=== PATIENT | female | born 1955 | race Caucasian/White ===

== ENCOUNTER 2017-11-25 09:07 | Inpatient (IN) | payer OTHER ==
--- OUTSIDE RECORDS SUMMARY | 2017-11-25 09:12 | XMS REPORT ---
:1955 External Reference #:[id number] Author Organization [employer] Address [address] [place] [address] Phone [phone] Care Team Providers Name Role Phone Herbert Marroquin MD Primary Care Physician Unavailable Payers Type Date Identification Numbers Payment Provider Subscriber Medicaid Expires: 2014 Policy Number: [id number] Medicaid Sherri Manuel Group Name: 1 1 [address] PayID: [id number] [place] [address] Commercial Effective: Policy Number: Judge/Totalcare Medicaid Sherri Manuel 2014 [id number] PayID: [id number] [address] [address] [place] [address] Problems Date Description Provider Status Onset: 08/12/2016 H/O: pulmonary embolus Ricarda Palumbo M.D. Active Onset: 08/12/2016 Paroxysmal atrial fibrillation Ricarda Palumbo M.D. Active Onset: 11/21/2014 Atrial flutter Ricarda Palmubo M.D. Active Onset: 06/13/2014 Morbid obesity Tammi Mayen MD Active Onset: 06/13/2014 Dyssomnia Tammi Mayen MD Active Onset: 05/12/2014 Obesity Ricarda Palumbo M.D. Active Onset: 05/12/2014 Essential hypertension Ricarda Palumbo M.D. Active Onset: 05/12/2014 Atrial fibrillation Ricarda Palumbo M.D. Active Family History Date Family Member(s) Problem(s) Comments General Heart Disease Father Coronary Artery Disease (CAD) 59 yo Mother Pulmonary Embolism (Pe) 45 yo. Also had enlarged heart Siblings 1 heart problems, brother Siblings 3 Siblings 2 Social History Type Date Description Comments Marital Status Single Lives With Boyfriend Occupation Not Currently Working Cigarette Use Former Cigarette Smoker Smokeless Tobacco Never Used Smokeless Tobacco ETOH Use Denies alcohol use Smoking Patient is a former smoker Recreational Drug Use Denies Drug Use Daily Caffeine Consumes on average 2 cups of regular coffee per day Exercise Type/Frequency Does not exercise General Hx Text Do you follow a special diet: regular diet Do you have problems snoring, daytime fatigue: no snoring, sometimes daytime fatigue. Allergies, Adverse Reactions, Alerts Date Description Reaction Status Severity Comments 06/24/2013 Biaxin active 06/24/2013 Levaquin active 05/12/2014 Contrast Dye active 05/24/2014 EKG Electrodes active 05/24/2014 Keflex active 06/02/2014 Metoprolol Shortness of breath active Mild Medications Medication Date Status Form Strength Qnty SIG Indications Ordering Provider Zaroxolyn Active Tablets 2.5mg 1 tab by Other 018 mouth Ordering daily 30 Provider min before lasix Verapamil HCL Active Caps ER 120mg 30caps Take 1 by I48.0 Usha STed ER 018 24HR mouth with Foster, 180mg tab N.P. Walker With Active M17.11 Dirk Wheels 017 Shruti Gabriel Verapamil HCL Active Caps ER 180mg 90caps 1 by mouth Ricarda ER 015 24HR daily Shruti Palumbo Singulair Active Tablets 10mg 1 by mouth Unknown 000 every day Proair HFA Active Aerosol 108(90Base 2 puffs by Unknown 000 ) mcg/Act mouth every 4 hours as needed Coumadin Active Tablets 5mg Take 1 Unknown 000 Tablet By Mouth Every Day Or as Directed Furosemide Active Tablets 40mg 1 by mouth Unknown 000 every day Propafenone Active Tablets 150mg 1 by mouth Unknown HCL 000 twice a day Aspirin Ec Hx Tablets 81mg 30tabs 1 by mouth I48.0 Ricarda 015 - DR every day Marquette, Shruti 017 Verapamil HCL Hx Caps ER 120mg 30caps take 1 tab Ricarda ER 015 - 24HR by mouth [place], daily - M.D. 015 start 06/02/14 Metoprolol Hx Tablets 25mg 30tabs 1 by mouth 427.32 Ricarda Succinate ER 015 - ER 24HR twice a [place], day M.D. 015 Verapamil HCL Hx Caps ER 120mg 30caps Take 1 tab 427.32 Ricarda ER 015 - 24HR po daily - Linwood, start M.D. 015 05/22/14 Multaq Hx Tablets 400mg 60tabs 1 by mouth 427.31 Ricarda 015 - twice a [place], day M.D. 015 Klor-Con 10 Hx Tablets 10Meq 90tabs 1 tablets 427.31 Ricarda 015 - ER by mouth [place], daily . M.D. 015 Amlodipine Hx 5mg once daily Unknown Besylate 000 - (Hold as of 015 05/22/14) Xarelto 0 Hx Tablets 20mg 90tabs 1 by mouth Unknown 000 - every day 015 Metoprolol /0 Hx Tablets 25mg 90tabs 1 by mouth Unknown Succinate ER 000 - ER 24HR every day 015 Prednisone 00/0 Hx Tablets 20mg 1 tablet Unknown 000 - po daily x 5days, 015 then 10mg 1 tablet po daily x 3days, then stop. Proair HFA Hx Aerosol 108(90Base 1units 2 puffs by Unknown 000 - ) mcg/Act mouth every 4 015 hours as needed Atenolol /0 Hx Tablets 25mg 30tabs 1 by mouth Unknown 000 - every day 015 Diltiazem HCL 0 Hx Caps ER 120mg 90caps 1 by mouth Unknown ER 000 - 24HR every day 015 Aspirin 00/0 Hx Tablets 81mg 1 by mouth Unknown 000 - every day 015 Tylenol 00/0 Hx Tablets 650mg Unknown Arthritis 000 - ER Relief 018 Vital Signs Date Vital Result Comment 11/12/2017 Height 66 inches 5'6" Heart Rate 118 /min BP Systolic Sitting 118 mmHg LA lg cuff BP Diastolic Sitting 92 mmHg LA lg cuff Ejection Fraction 60% Echo 03/18/15 10/08/2017 Height 66 inches 5'6" Heart Rate 100 /min BP Systolic Sitting 146 mmHg BP Diastolic Sitting 92 mmHg Respiratory Rate 20 /min Ejection Fraction 55-60% echo 03/18/2015 03/03/2017 Height 66 inches 5'6" Weight 332.00 lb with shoes Heart Rate 84 /min irreg BP Systolic Sitting 118 mmHg Rue lg cuff BP Diastolic Sitting 80 mmHg Rue lg cuff BP Systolic Standing 110 mmHg Rue lg cuff BP Diastolic Standing 74 mmHg Rue lg cuff Respiratory Rate 17 /min BMI (Body Mass Index) 53.6 kg/m2 Ejection Fraction 55-60% date 03/18/2015 ECHO 02/16/2017 Height 66 inches 5'6" Weight 310.00 lb BP Systolic 122 mmHg BP Diastolic 84 mmHg Respiratory Rate 20 /min Body Temperature 97.9 F Pain Level 7 BMI (Body Mass Index) 50.0 kg/m2 08/12/2016 Height 66 inches 5'6" Weight 310.00 lb without shoes Heart Rate 90 /min BP Systolic 140 mmHg Rue lg cuff BP Diastolic 100 mmHg Rue lg cuff BP Systolic Sitting 136 mmHg Lue lg cuff BP Diastolic Sitting 102 mmHg Lue lg cuff BP Systolic Standing 130 mmHg Lue lg cuff BP Diastolic Standing 88 mmHg Lue lg cuff Respiratory Rate 18 /min BMI (Body Mass Index) 50.0 kg/m2 Ejection Fraction 50% date 04/02/14 ECHO 02/12/2015 Height 66 inches 5'6" Weight 264.00 lb without shoes Heart Rate 85 /min BP Systolic Sitting 144 mmHg L arm, large cuff BP Diastolic Sitting 90 mmHg L arm, large cuff BP Systolic Standing 138 mmHg BP Diastolic Standing 90 mmHg Respiratory Rate 20 /min BMI (Body Mass Index) 42.6 kg/m2 Ejection Fraction 40-50% 03/201411/21/2014 Height 66 inches 5'6" Weight 260.00 lb with shoes Heart Rate 80 /min BP Systolic Sitting 146 mmHg LA, Lg cuff BP Diastolic Sitting 96 mmHg LA, Lg cuff BP Systolic Standing 138 mmHg LA BP Diastolic Standing 96 mmHg LA Respiratory Rate 16 /min BMI (Body Mass Index) 42.0 kg/m2 Ejection Fraction 45-50% 04/02/2014 06/13/2014 Height 66 inches 5'6" Weight 272.38 lb full clothed Heart Rate 78 /min BP Systolic Sitting 144 mmHg BP Diastolic Sitting 92 mmHg Respiratory Rate 20 /min Body Temperature 97.8 F O2 % BldC Oximetry 98 % BMI (Body Mass Index) 44.0 kg/m2 Neck Circumference in inches 17.5 05/24/2014 Height 64 inches 5'4" Weight 273.00 lb with shoes Heart Rate 80 /min BP Systolic Sitting 120 mmHg LA, Lg cuff BP Diastolic Sitting 88 mmHg LA, Lg cuff BP Systolic Standing 118 mmHg LA BP Diastolic Standing 92 mmHg LA Respiratory Rate 16 /min BMI (Body Mass Index) 46.9 kg/m2 05/22/2014 Height 64 inches 5'4" Weight 272.00 lb with shoes Heart Rate 154 /min BP Systolic Sitting 120 mmHg Ra lg cuff BP Diastolic Sitting 94 mmHg Ra lg cuff Respiratory Rate 18 /min BMI (Body Mass Index) 46.7 kg/m2 05/12/2014 Height 64 inches 5'4" Weight 275.00 lb without shoes Heart Rate 80 /min BP Systolic 124 mmHg Ra lg cuff BP Diastolic 80 mmHg Ra lg cuff BP Systolic Sitting 126 mmHg La lg cuff BP Diastolic Sitting 90 mmHg La lg cuff BP Systolic Standing 130 mmHg La lg cuff BP Diastolic Standing 84 mmHg La lg cuff Respiratory Rate 16 /min BMI (Body Mass Index) 47.2 kg/m2 12/16/2013 Height 66 inches 5'6" Weight 296.00 lb Heart Rate 81 /min BP Systolic 145 mmHg BP Diastolic 90 mmHg BMI (Body Mass Index) 47.8 kg/m2 11/18/2013 Height 66 inches 5'6" Weight 293.00 lb Heart Rate 86 /min BP Systolic 160 mmHg BP Diastolic 90 mmHg BMI (Body Mass Index) 47.3 kg/m2 09/16/2013 Height 66 inches 5'6" Weight 300.00 lb Heart Rate 87 /min BP Systolic 133 mmHg BP Diastolic 85 mmHg BMI (Body Mass Index) 48.4 kg/m2 08/02/2013 Height 66 inches 5'6" Weight 300.00 lb Heart Rate 84 /min BMI (Body Mass Index) 48.4 kg/m2 07/13/2013 Height 66 inches 5'6" Weight 300.00 lb Heart Rate 77 /min BP Systolic 178 mmHg BP Diastolic 109 mmHg BMI (Body Mass Index) 48.4 kg/m2 06/24/2013 Height 66 inches 5'6" Weight 300.00 lb Heart Rate 83 /min BP Systolic 158 mmHg BP Diastolic 95 mmHg BMI (Body Mass Index) 48.4 kg/m2 Results Test Date Test Result H/L Range Note Order 05/24/2014 EKG <pending> Laboratory test finding 03/27/2014 Troponin I 0.01 ng/mL <0.03 1 CKMB 03/27/2014 CKMB ng/mL 2.5 ng/mL 0.6-6.3 Comp Metabolic Panel 03/27/2014 Sodium 138 mmol/L 133-145 Potassium 3.5 mmol/L 3.5-5.0 2 Chloride 103 mmol/L 101-111 Co2 Carbon Dioxide 29 mmol/L 22-32 Anion Gap 6 mmol/L 2-11 Glucose 137 mg/dL High 70-100 Blood Urea Nitrogen 18 mg/dL 6-24 Creatinine 0.92 mg/dL 0.51-0.95 BUN/Creatinine Ratio 19.6 8-20 Calcium 9.4 mg/dL 8.6-10.3 Total Protein 6.8 g/dL 6.4-8.9 Albumin 4.0 g/dL 3.2-5.2 Globulin 2.8 g/dL 2-4 Albumin/Globulin Ratio 1.4 1-3 Total Bilirubin 0.60 mg/dL 0.2-1.0 Alkaline Phosphatase 59 U/L 34-104 Alt 10 U/L 7-52 Ast 9 U/L Low 13-39 Egfr Non- 62.9 >60 Egfr 80.9 >60 3 Laboratory test 03/27/2014 D Dimer Quantitative 254 ng/mL High Less Than 230 4 finding B Type Natriuretic Peptide 15 pg/mL 5 CBC Auto Diff 03/27/2014 White Blood Count 11.7 10^3/uL High 4.8-10.8 Red Blood Count 4.50 10^6/uL 4.0-5.4 Hemoglobin 13.0 g/dL 12.0-16.0 Hematocrit 40 % 35-47 Mean Corpuscular Volume 90 fL 80-97 Mean Corpuscular Hemoglobin 29 pg 27-31 Mean Corpuscular HGB Conc 32 g/dL 31-36 Red Cell Distribution Width 14 % 10.5-15 Platelet Count 236 10^3/uL 150-450 Mean Platelet Volume 9 um3 7.4-10.4 Abs Neutrophils 7.8 10^3/uL High 1.5-7.7 Abs Lymphocytes 2.4 10^3/uL 1.0-4.8 Abs Monocytes 0.7 10^3/uL 0-0.8 Abs Eosinophils 0.6 10^3/uL 0-0.6 Abs Basophils 0.1 10^3/uL 0-0.2 Abs Nucleated RBC 0.01 10^3/uL Granulocyte % 66.7 % 38-83 Lymphocyte % 21.0 % Low 25-47 Monocyte % 6.0 % 1-9 Eosinophil % 5.1 % 0-6 Basophil % 1.2 % 0-2 Nucleated Red Blood Cells % 0.1 1 Reference Range and Interpretation: TnI (ng/mL) Interpretation Less Than 0.03 ng/mL Not supportive of diagnosis of [place] 0.03 - 0.50 ng/mL Indeterminate: suggest serial studies if clinically indicated. Greater than 0.5 ng/mL Consistent with diagnosis of [place] 2 Potassium reference range changed effective 03/12/14 3 Because ethnic data is not always readily available, this report includes an eGFR for both -Americans and non- Americans. The National Kidney Disease Education Program (NKDEP) does not endorse the use of the MDRD equation for patients that are not between the ages of 18 and 70, are , have extremes of body size, muscle mass, or nutritional status, or are non- or non-. According to the National Kidney Foundation, irrespective of diagnosis, the stage of the disease is based on the level of kidney function: Stage Description GFR(mL/min/1.73 m(2)) 1 Kidney damage with normal or decreased GFR 90 2 Kidney damage with mild decrease in GFR 60-89 3 Moderate decrease in GFR 30-59 4 Severe decrease in GFR 15-29 5 Kidney failure <15 (or dialysis) 4 Please note: The following may produce a false positive D Dimer test: - Rheumatoid factor greater than 60 IU/ml - Plasma hemoglobin greater than 0.05 gm/dl - Bilirubin greater than 50 mg/dl - Lipids greater than 1000 mg/dl - FDP greater than 20 ug/ml 5 >100 to <200 pg/mL: likely compensated congestive heart failure (CHF) 200 to 400 pg/mL: likely moderate CHF >400 pg/mL: likely moderate to severe CHF [place] [facility] Procedures Date CPT Code Description Status 11/12/2017 77957 EKG Tracing & Interpretation Completed 11/05/2017 41125 Cardioversion Completed 10/27/2017 92226 Holter Monitor Review (24 hr) review & jellyp only Completed 10/21/2017 58705 ECG Monitor/Recording W/Visual Superimposition Scanning Completed 10/08/2017 91052 EKG Tracing & Interpretation Completed 03/03/2017 70492 EKG Tracing & Interpretation Completed 08/12/2016 74275 EKG Tracing & Interpretation Completed 02/12/2015 44033 EKG Tracing & Interpretation Completed 05/24/2014 00308 EKG Tracing & Interpretation Completed 05/22/2014 90066 EKG Tracing & Interpretation Completed 05/12/2014 70936 EKG Tracing & Interpretation Completed 04/02/2014 95050 ECHO Transthorasic Realtime 2D W Doppler & Color Flow Completed Hosp 04/02/2014 05234 EKG, Interpretation Only Completed 07/13/2013 19177 Xray Knee 3 Views Completed 07/13/2013 83718 Xray Knee 3 Views Completed 06/24/2013 10031 Rad Exam; OS Alcis Completed 04/18/2011 53657 Rad Exam; Knee, Ap&L Completed 04/18/2011 14196 Rad Exam; Knee, Ap&L Completed 08/20/2009 21818 Xray Knee 3 Views Completed 08/20/2009 33136 Rad Exam; Knee, Ap&L Completed Encounters Type Date Location Provider CPT E/M Dx Office Visit 10/08/2017 [facility] Usha Freeman N.P. 88330 I48.0 11:00a [employer] I10 E66.01 R60.9 I48.92 Office Visit 03/03/2017 11:15a [facility] Ricarda Palumbo M.D. 43366 I48.0 [employer] I10 E66.01 M17.0 Office Visit 02/16/2017 1:30p [facility] M.D. 39686 M17.11 C.M.ATed M17.12 M17.0 Office Visit 08/12/2016 3:00p [facility] Ricarda Palumbo M.D. 00106 I48.0 [employer] I10 Z68.43 Z86.711 Office Visit 02/12/2015 10:30a [facility] CARYL Diego [address]240 I48.0 I10 E66.01 J45.30 Office Visit 11/21/2014 3:00p [facility] Ricarda Palumbo M.D. 97681 427.32 [facility] 427.31 401.9 786.07 493.10 Office Visit 06/13/2014 8:45a [facility] [address] 780.59 Services Of [facility] 278.01 Office Visit 05/24/2014 9:30a [facility] CARYL Diego 28832 427.32 427.31 401.9 278.00 780.4 Office Visit 05/22/2014 9:30a [facility] CARYL Diego 52754 427.31 427.32 780.4 Office Visit 05/12/2014 2:00p [facility] Ricarda Palumbo M.D. 83222 427.31 [facility] 401.9 278.00 Office Visit 04/02/2014 8:18p [facility] Cristina Juaquin, 05957 427.32 [facility] Shruti 493.90 401.9 Office Visit 04/01/2014 8:17p [facility] [place], [address] 427.32 [facility] Shruti 493.90 401.9 Office Visit 02/11/2014 9:33p [facility] Juan J Poole 95833 553.3 Hospitalists Shruti Pereyra 493.92 401.9 278.01 Office Visit 12/16/2013 10:45a [facility] 53775 726.71 Edita Bahena Office Visit 11/18/2013 10:15a [facility] 69573 726.71 CUrsula Bahena Office Visit 09/16/2013 10:30a [facility] 20000 726.71 Edita Bahena Office Visit 08/02/2013 3:00p [facility] 56954 726.71 CUrsula Bahena Office Visit 07/13/2013 9:30a [facility] M.D. 19756 716.96 C.M.A. Office Visit 06/24/2013 1:15p [facility] Toni 08287 726.71 C.M.A. Rika. Office Visit 04/18/2011 9:30a [facility] M.D. 36729 716.96 C.M.A. Office Visit 08/20/2009 9:30a [facility] M.D. 04334 716.96 C.M.A. Plan of Care Future Appointment(s):02/11/2018 1:30 pm - Ricarda Palumbo M.D. at [facility]12/08/2017 9:00 am - Usha Freeman N.PTed at [facility]11/12/2017 - Usha Freeman NTedPTedI48.0 Paroxysmal atrial fibrillationFollow up:3wk f/u SF w/ EKG 02/2018Recommendations:Continue propafenone at current dose Plan: 1) we may increaased propafenone OR 2) try a different medicine that would require hospitalization.I10 Essential (primary) fxqsanhwnybqW53.01 Morbid (severe) obesity due to excess kkvbnmytW63.9 Edema, unspecified
--- OUTSIDE RECORDS SUMMARY | 2017-11-25 09:12 | XMS REPORT ---
:1955 External Reference #:[id number] Author Organization [employer] Address [address] [place] [place] [address] Phone [phone] Care Team Providers Name Role Phone Herbert Marroquin MD Primary Care Physician Unavailable Payers Type Date Identification Numbers Payment Provider Subscriber Medicaid Expires: 2014 Policy Number: [id number] Medicaid Sherri Manuel Group Name: 1 1 [address] PayID: [id number] [place] [address] Commercial Effective: Policy Number: Judge/Totalcare Medicaid Sherri Manuel 2014 [id number] PayID: [id number] [address] [address] [place] [address] Problems Date Description Provider Status Onset: 08/12/2016 H/O: pulmonary embolus Ricarda Palumbo M.D. Active Onset: 08/12/2016 Paroxysmal atrial fibrillation Ricarda Palumbo M.D. Active Onset: 11/21/2014 Atrial flutter Ricarda Palumbo M.D. Active Onset: 06/13/2014 Morbid obesity Tammi [...] Form Strength Qnty SIG Indications Ordering Provider Verapamil HCL Active Caps ER 120mg 30caps Take 1 by I48.0 Usha S. ER 018 24HR mouth with Foster, 180mg [...] 1 by mouth Unknown 000 every day Aspirin Ec Hx Tablets DR 81mg 30tabs 1 by mouth I48.0 Ricarda 015 - every day Linwood, M.Obdulio 017 Verapamil HCL Hx Caps ER 120mg 30caps take 1 tab Ricarda ER 015 - 24HR by mouth Linwood, daily - MTedDTed 015 start 06/02/14 Metoprolol Hx Tablets ER 25mg 30tabs 1 by mouth 427.32 Ricarda Succinate ER 015 - 24HR twice a [place], day M.D. 015 Verapamil HCL Hx Caps ER 120mg 30caps Take 1 tab 427.32 Ricarda ER 015 - 24HR po daily - Linwood, start M.D. 015 05/22/14 Multaq Hx Tablets 400mg 60tabs 1 by mouth 427.31 Ricarda 015 - twice a [place], day M.D. 015 Klor-Con 10 Hx Tablets ER 10Meq 90tabs 1 tablets 427.31 Ricarda 015 - by mouth [place], daily . M.D. 015 Amlodipine Hx 5mg once daily Unknown Besylate 000 - (Hold as of 015 05/22/14) Xarelto /0 Hx Tablets 20mg 90tabs 1 by mouth Unknown 000 - every day 015 Metoprolol /0 Hx Tablets ER 25mg 90tabs 1 by mouth Unknown Succinate ER 000 - 24HR every day 015 Prednisone /0 Hx Tablets 20mg 1 tablet Unknown 000 - po daily x 5days, 015 then 10mg 1 tablet po daily x 3days, then stop. Proair HFA Hx Aerosol 108(90Base 1units 2 puffs by Unknown 000 - ) mcg/Act mouth every 4 015 hours as needed Atenolol 0 Hx Tablets 25mg 30tabs 1 by mouth Unknown 000 - every day 015 Diltiazem HCL Hx Caps ER 120mg 90caps 1 by mouth Unknown ER 000 - 24HR every day 015 Aspirin /0 Hx Tablets 81mg 1 by mouth Unknown 000 - every day 015 Tylenol 00/0 Hx Tablets ER 650mg Unknown Arthritis 000 - Relief 018 Vital Signs Date Vital Result Comment 10/08/2017 Height 66 inches 5'6" Heart Rate [...] 0.03 ng/mL Not supportive of diagnosis of [place] 0.03 - 0.50 ng/mL Indeterminate: suggest serial studies if clinically indicated. Greater than 0.5 ng/mL Consistent with diagnosis of [place] 2 Potassium reference range changed effective 03/12/14 [...] >400 pg/mL: likely moderate to severe CHF [place] [facility] Procedures Date CPT Code Description Status 10/27/2017 98044 Holter Monitor Review (24 hr)dr pride & interp only Completed 10/21/2017 22433 ECG Monitor/Recording W/Visual Superimposition Scanning Completed 10/08/2017 35534 EKG Tracing & Interpretation Completed 03/03/2017 86983 EKG Tracing & Interpretation Completed 08/12/2016 14924 EKG Tracing & Interpretation Completed 02/12/2015 02348 EKG Tracing & Interpretation Completed 05/24/2014 40256 EKG Tracing & Interpretation Completed 05/22/2014 90822 EKG Tracing & Interpretation Completed 05/12/2014 23030 EKG Tracing & Interpretation Completed 04/02/2014 77478 EKG, Interpretation Only Completed 04/02/2014 79434 ECHO Transthorasic Realtime 2D W Doppler & Color Flow Completed Hosp 07/13/2013 73565 Xray Knee 3 Views Completed 07/13/2013 10549 Xray Knee 3 Views Completed 06/24/2013 49523 Rad Exam; OS Alcis Completed 04/18/2011 38546 Rad Exam; Knee, Ap&L Completed 04/18/2011 57724 Rad Exam; Knee, Ap&L Completed 08/20/2009 26152 Xray Knee 3 Views Completed 08/20/2009 60268 Rad Exam; Knee, Ap&L Completed Encounters Type Date Location Provider CPT E/M Dx Office Visit 10/08/2017 [facility] Usha Freeman, N.PTed 28102 I48.0 11:00a [facility] I10 E66.01 R60.9 I48.92 Office Visit 03/03/2017 11:15a [facility] Ricarda Palumbo M.D. 35430 I48.0 [facility] I10 E66.01 M17.0 Office Visit 02/16/2017 1:30p [facility] M.D. 63309 M17.11 C.M.Puma M17.12 M17.0 Office Visit 08/12/2016 3:00p [facility] Kevin Palumbo M.D. 89317 I48.0 [facility] I10 Z68.43 Z86.711 Office Visit 02/12/2015 10:30a [facility] CARYL [place] 90308 I48.0 I10 E66.01 J45.30 Office Visit 11/21/2014 3:00p [facility] Ricarda Palumbo M.D. 52355 427.32 [facility] 427.31 401.9 786.07 493.10 Office Visit 06/13/2014 8:45a [facility] [address] 780.59 Services Of Orthodontic Assistant 278.01 Office Visit 05/24/2014 9:30a [facility] CARYL [place] 98298 427.32 427.31 401.9 278.00 780.4 Office Visit 05/22/2014 9:30a [facility] CARYL [place] 91953 427.31 427.32 780.4 Office Visit 05/12/2014 2:00p [facility] Ricarda Palumbo M.D. 20120 427.31 [facility] 401.9 278.00 Office Visit 04/02/2014 8:18p [facility] Cristina Reza, 30743 427.32 [facility] Shruti 493.90 401.9 Office Visit 04/01/2014 8:17p [facility] [place], [address] 427.32 [facility] Shruti 493.90 401.9 Office Visit 02/11/2014 9:33p [facility]oc[facility]pc Juan J Poole 13535 553.3 Hospitalists Shruti Pereyra 493.92 401.9 278.01 Office Visit 12/16/2013 10:45a [facility], 84854 726.71 Edita Bahena Office Visit 11/18/2013 10:15a [facility] Toni, 66792 726.71 Edita Bahena Office Visit 09/16/2013 10:30a [facility] Toni, 92011 726.71 Edita Bahena Office Visit 08/02/2013 3:00p [facility] Mu[facility], 03769 726.71 Edita Bahena Office Visit 07/13/2013 9:30a [facility] M.D. 16140 716.96 C.M.ATed Office Visit 06/24/2013 1:15p [facility] 32337 726.71 CUrsula Bahena Office Visit 04/18/2011 9:30a [facility] M.D. 08976 716.96 C.M.ATed Office Visit 08/20/2009 9:30a [facility] M.D. 50303 716.96 C.M.A. Plan of Care Future Appointment(s):11/19/2017 10:00 am - Usha Freeman N.P. at [facility]10/08/2017 - Usha Freeman N.P.I48.0 Paroxysmal atrial fibrillationNew Medication:Verapamil HCL ER 120 mgFollow up:1 mo f/u testingRecommendations:INCREASE Verapamil to 300mg total Take 120mg tab with your 180mg tabI10 Essential (primary) wbysjtmhrpitT39.01 Morbid (severe) obesity due to excess jeithpqmO38.9 Edema, gkrpvaebcanB21.92 Unspecified atrial flutter
[2017-11-25 10:52] LABS: INR 2.69 (0.77-1.02)
[2017-11-25] MEDS ORDERED: Magnesium Sulfate 1 GM IV* 1 GM/100 ML BAG IV PRN (11:06)
[2017-11-25] MEDS ORDERED: Potassium Chlor TAB* 20 MEQ TAB.ER PO PRN (11:09)
[2017-11-25] MEDS: Saline FLUSH-PERIPHERAL* 10 ML SYRINGE PERIPH SCH (11:09)
[2017-11-25] MEDS ORDERED: Potassium Chlor TAB* 10 MEQ TAB.ER PO ONE (11:14)
[2017-11-25] MEDS ORDERED: Magnesium Sulfate IV* 2 GM in NS 0.9% 100 ML* 100 ML IV ONE (11:16)
[2017-11-25] MEDS ORDERED: Diltiazem IV* 5 MG/ML 5 ML VIAL (for loading dose/IV Push) (25 MG) IV PUSH ONE (12:00)
[2017-11-25] MEDS: metFORMIN* 500 MG TAB PO SCH (17:24)
[2017-11-25] MEDS: SITAGLIPTIN 25 MG PO SCH (17:24)
[2017-11-25] MEDS: Warfarin TAB(*) 2.5 MG PO SCH (17:25)
[2017-11-25] MEDS: Montelukast Sodium TAB* 10 MG PO SCH (17:25)
[2017-11-25] MEDS ORDERED: Verapamil SR CAP* 180 MG PO SCH (18:00)
[2017-11-25] MEDS ORDERED: Verapamil SR TAB* 240 MG PO SCH (18:00)
[2017-11-25 20:40] LABS: EGFR Non-African American 62.8 (>60)
[2017-11-25] MEDS: Albuterol HFA INHALER* 8 gm MDI INH PRN (21:06)
[2017-11-25] MEDS: Dofetilide CAP* 250 MCG PO SCH (21:31)
[2017-11-25] MEDS ORDERED: Magnesium Sulfate IV 2 GM in NS 100 ML (Pharmacy Admixed) IV ONE (21:45)
[2017-11-25] MEDS ORDERED: Potassium Chlor TAB* 20 MEQ TAB.ER PO ONE (21:45)
--- NOTE | 2017-11-25 22:57 | HP ---
CC: Dr. Herbert Marroquin HISTORY AND PHYSICAL: DATE OF ADMISSION: 11/25/17 HISTORY OF PRESENT ILLNESS: Ms. Manuel is a 62-year-old woman with paroxysmal atrial fibrillation as w ell as hypertension. The patient had been in sinus rhythm, then called our office at the end of September because of swelling in her legs and shortness of breath. Evaluation revealed AFib/flutter and initia l cardioversion attempt was unsuccessful. She was tried on propafenone but had broken through this a nd QT intervals were too long to increase. When the patient is in atrial fibrillation, she has historically been difficult to rate control and l eg swelling worsens. The patient's diltiazem was converted to verapamil and diuretics were increased from Lasix alone to Lasix plus metolazone. The patient has been on long-standing chronic Coumadin. Today, the patient was being admitted for elective Tikosyn loading with her propafenone having been h eld. She feels that the pounding of the heart and exertional dyspnea is improved with verapamil over diltiazem, although she is still aware of some heart pounding. PAST MEDICAL HISTORY: 1. Paroxysmal atrial fibrillation. 2. Paroxysmal aflutter. 3. Pulmonary embolism. 4. Hypertension. 5. Asthma. 6. Morbid obesity. 7. Renal stones. 8. Degenerative arthritis. PAST SURGICAL HISTORY: Includes, 1. Cholecystectomy. 2. Hernia. OUTPATIENT MEDICATIONS: Include, 1. Verapamil 300 mg a day. 2. Lasix 40 mg a day. 3. Metolazone. 4. Coumadin. 5. ProAir HFA. 6. Singular 10 mg a day. ALLERGIES: Include BIAXIN, LEVAQUIN, CONTRAST DYE, contact dermatitis to EKG ELECTRODES, KEFLEX, and METOPROLOL. FAMILY HISTORY: Positive for heart disease, her father at age 59 of heart disease. Her mother at age 45 of a pulmonary embolism. She has two brothers with heart disease. SOCIAL HISTORY: The patient is disabled, not working. Smoked in the past. No history of alcohol us e or recreational drug use. She had moved to the [facility]. It sounds like was unable to establish c are and moved back here. REVIEW OF SYSTEMS: Significant for the left lower extremity being greater than the right since she d rove to the [facility] and was sleeping in a chair all the time. Negative currently for orthopnea or P ND. No chest pain, pressure, heaviness. Positive for persistent left lower extremity edema greater t chacon right. No recent fevers, chills, sweats, change in bowel or bladder habits. No hematuria or dys uria. All other 15-point review of systems is negative. PHYSICAL EXAMINATION GENERAL APPEARANCE: Morbidly obese woman, somewhat older, I saw her seated in no acute distress. VITAL SIGNS: The patient is 5 feet 6 inches, weighs 355 pounds with a BMI of 57. Vital signs on arri karla to the floor, temperature 98.5, pulse was documented as 95, respiratory rate 20, oxygen saturatio n 93% on room air, blood pressure 150/80. HEENT: Pupils are equal and round. Mucous membranes moist. NECK: Thick from obesity with no appreciable thyromegaly or lymphadenopathy. LUNGS: Breath sounds distant from obesity but clear. No wheezes, rales, or rhonchi. CORONARY: S1 and S2, irregular irregularly without murmurs or rubs. Pulses are distant. ABDOMEN: Very overweight. EXTREMITIES: Left lower extremities shows 2 to 3+ pitting edema and is larger in diameter than the r ight lower extremity, which shows trace to 1+ edema. NEUROLOGIC: Awake, alert, oriented to person, place, and time. Grossly normal sensory and motor fun ction in the upper and lower extremities. Gait not checked. PSYCHOLOGICAL: Pleasant and cooperative. SKIN: Warm, dry without appreciable cyanosis or rashes. DIAGNOSTIC STUDIES: A 12-lead ECG on arrival shows sinus rhythm, 96 beats a minute, QRS axis of 0, normal AV and IV conduction time. She has diffuse ST changes in the lateral leads of flattening, non specific. She had a measured QT interval of 424 milliseconds, which I think is erroneous. Her IN in terval is short, this is particularly evident in leads 1 and aVL. LABORATORY DATA: INR 2.69. Sodium 139, potassium 2.9, glucose 96, bicarb 32, BUN 24, creatinine 0.85, glucose 156. Hemoglobin A 1c was 8.1. Magnesium 1.7. TSH 6.09. Thyroxine 8.75 and total T3 1.14. IMPRESSION: In summary, Sherri Manuel is a 62-year-old woman with paroxysmal atrial fibrillation with tachycardic ventricular response, secondary exertional dyspnea and edema of the left lower extremiti es, being admitted for Tikosyn loading. The patient on the floor appeared to have been in and out of atrial fibrillation. We are unable to st art her Tikosyn loading because of electrolyte imbalance and this is probably related to her more agg ressive diuresis without potassium repletion. I am repleting potassium and magnesium and once these are normalized, we can try to initiate Tikosyn. The Tikosyn interacts with many medications including verapamil and all thiazide diuretics. We are g oing to stop the verapamil, resume diltiazem, and stop the metolazone. The patient's elevated glucoses and hemoglobin A1c is to my knowledge a new diagnosis of diabetes an d a mildly abnormal thyroid was noted. I am going to ask the hospitalist to assist in treatment of h er diabetes. I had already asked for dietitian to consult due to her morbid obesity and atrial fibrillation. Additional recommendations will be made pending the patient's response of her electrolytes and her QT intervals with replacement. My hope is we will be able to initiate Tikosyn, if so, although her cre atinine clearance is adequate to initiate 500 mcg b.i.d., I am going to start her at 250 mcg b.i.d. [id number]/[facility] #: [id number]
--- NOTE | 2017-11-25 23:22 | CONS ---
CC: Dr. Herbert Marroquin; Dr. Ricarda Palumbo * CONSULTATION REPORT: DATE OF CONSULT: 11/25/17 PRIMARY CARE PROVIDER: Dr. Herbert Marroquin. CONSULTING PROVIDER: Dr. Ricarda Palumbo. MY ATTENDING WHILE IN THE HOSPITAL: Dr. Chan Spangler. REASON FOR CONSULT: Co-management of comorbid medical conditions during Tikosyn loading admission. HISTORY OF PRESENT ILLNESS: Ms. Manuel is a 62-year-old female with past medical history significant for paroxysmal atrial fibrillation, asthma, morbid obesity, bilateral lower extremity edema, who has been having worsening episodes of paroxysmal atrial fibrillation with rates up to the 140s. The patient has been also having issues with leg swelling and shortness of breath, which has been resistant to Lasix and metolazone dosing. The patient had a Holter monitor, which showed atrial flutter and fibrillation persistently. The patient has had a stable weight. The patient knows generally when she is in atrial fibrillation due to a palpitation sensation, the patient has never passed out with this, but has had a couple episodes of presyncope associated with these, most recently 1 week ago. The patient denies chest pain with these episodes. The patient has no recent illnesses. The patient was started on propafenone, which was unsuccessful in controlling her atrial fibrillation as well as metolazone to augment her Lasix, which was unsuccessful in controlling her lower extremity edema, which she states has been worsening over the past 2 weeks. The patient states that she has a sensation of going in and out of AFib approximately 3 times a week. The patient was admitted to the hospital for Tikosyn dosing for better rhythm control of her atrial fibrillation. The patient while in the hospital had an elevated fasting glucose as well as hemoglobin A1c of 8.1. The patient has no known history of diabetes mellitus. The patient had an elevated blood glucose recently on her lab work, but adjusted her diet to include fewer carbohydrates and this resolved; however, the patient's blood glucose this morning was 153. The patient denies polydipsia or polyphagia. The patient has gained a lot of weight, but she recently retired and has been exercising much less. The patient states she has had polyuria, but attributes this to the increase in her diuretic dosing. The patient uses her rescue inhaler for her asthma approximately twice a day. The patient is on no maintenance inhaler, only Singulair. We were asked to consult for help for control of the patient's diabetes. The patient also had an elevated TSH in the hospital, but normal T3 and T4. The patient has been continued on Coumadin and is currently therapeutic on her INR. PAST MEDICAL HISTORY: Moderate persistent asthma, atrial fibrillation, lower extremity edema, osteoarthritis, morbid obesity, new-onset diabetes mellitus. PAST SURGICAL HISTORY: Cholecystectomy, hernia repair. MEDICATIONS: On admission: 1. Albuterol inhaler 2 puffs inhalation q.4 hours as needed. 2. Warfarin 5 mg p.o. Thursday. 3. Warfarin 2.5 mg p.o. Thursday, Thursday, , Thursday and Thursday. 4. Singulair 10 mg p.o. q.p.m. 5. Verapamil 300 mg p.o. at q. 1800. 6. Metolazone 2.5 mg p.o. daily. Of note, the patient's verapamil and metolazone were stopped while in the hospital due to interference with Tikosyn. The patient will receive her first dose of Tikosyn at 9 p.m. today. The patient will be on diltiazem for rate control. ALLERGIES: BIAXIN, LEVAQUIN, CONTRAST DYE, KEFLEX, METOPROLOL, EKG electrodes. FAMILY HISTORY: The patient's mother of PE related to pneumonia. The patient's father of an DE. The patient's eldest brother of DE. The patient's second eldest brother has heart disease of unknown cause, but is well controlled. The patient's youngest brother is healthy. SOCIAL HISTORY: The patient smoked for approximately 5 years 4 cigarettes a day approximately 20 years ago. The patient denies any alcohol or drug abuse. The patient used to work as a cleaning person, but is currently retired. The patient has never been . The patient has 1 daughter, Kelle Muñoz, who she would like to be her surrogate decision maker. REVIEW OF SYSTEMS: A 14-point review of systems was reviewed and is negative except as above in the HPI. PHYSICAL EXAM: General: The patient is a 62-year-old morbidly obese female, who appears her stated age and sitting comfortably in bed, in no acute distress. Vital Signs: At the time of evaluation, temperature 98.1, pulse rate 93, respiratory rate 16, oxygen saturation 98% on room air, blood pressure 114/69. HEENT: Head normocephalic, atraumatic. Sclerae anicteric. No conjunctival injection. Nasal mucosa moist. Oral mucosa moist. No oropharyngeal erythema, discharge or exudate. Neck: Supple, nontender. No lymphadenopathy. No carotid bruits auscultated. No JVD. Cardiac: Irregularly irregular rhythm. Rate of 90. No clicks, murmurs, gallops, or rubs. Pulses are 2+ in the bilateral dorsalis pedis, posterior tibialis and radial areas. 3+ pitting edema in the left lower extremity, 2+ in the right lower extremity and calves. Tenderness over the superior aspect of the Achilles tendon on the left lower extremity. No palpable cords. Respiratory: Clear to auscultation bilaterally. No wheezes, rales, or rhonchi. Good air exchange bilaterally. Abdomen: Soft, nontender, nondistended, morbidly obese. Bowel sounds present and normoactive in all 4 quadrants. No hepatosplenomegaly. No abdominal bruits auscultated. No hepatojugular reflux. Genitourinary: No suprapubic or CVA tenderness. Skin: Clean, dry, and intact. No rash on exposed skin. Neuro: Cranial nerves II through XII are intact. No focal deficits. Alert and oriented x3. Psychiatric: Pleasant and cooperative. DIAGNOSTIC STUDIES/LAB DATA: On day of admission, INR 2.69. Sodium 139, potassium 2.9, chloride 96, carbon dioxide 32, anion gap 11, BUN 14, creatinine 0.85, glucose 153. Hemoglobin A1c 8.1. Calcium 9.6, magnesium 1.7. TSH 6.09, T4 8.75, T3 114. Studies: EKG shows regular rhythm, P-waves present, rate of 96, QTc of 536, notched P-waves indicating left atrial enlargement, borderline left ventricular hypertrophy. ASSESSMENT AND PLAN/IMPRESSION: Ms. Manuel is a 62-year-old female with past medical history significant for paroxysmal atrial fibrillation, asthma, morbid obesity, and newly diagnosed diabetes mellitus type 2 with concern for obstructive sleep apnea, who was directly admitted for Tikosyn loading for better rhythm control of her atrial fibrillation. Further control needed for her diabetes and apnea to control cardiac risk factors. 1. Paroxysmal atrial fibrillation. Management per primary team. Tikosyn loading begun. Switch diltiazem for control due to METOPROLOL allergy and interactions between Tikosyn and verapamil. The patient has had increased swelling in her legs and shortness of breath. A recent echocardiogram report was unable to be found. Given the patient's relatively uncontrolled rates and lower extremity edema as well as fatigue and shortness of breath, we will order a transthoracic echocardiogram to assess for tachycardia-induced cardiomyopathy. 2. Diabetes mellitus type 2, newly diagnosed onset, elevated morning glucose with hemoglobin A1c of 8.1. We will start the patient on metformin 500 mg p.o. b.i.d. as well as Januvia and monitor fingersticks a.c. and h.s. The patient will have dietary teaching regarding diabetes education. The patient should follow up with her primary care provider outpatient for routine recommended monitoring of her feet, eyes, kidneys, as well as monitoring of her hemoglobin A1c and side effects from her medications. 3. Moderate persistent asthma. The patient is on Singulair and albuterol. The patient will have these medications while in the hospital. The patient's respiratory exam is currently benign. We will monitor. The patient should follow up with her primary care provider for continued control of her asthma. 4. Lower extremity edema. Continue the patient's Lasix. Metolazone held due to interference with Tikosyn. 5. Prolonged QT interval, hypomagnesemia, hypokalemia. Management per primary team. Agree with magnesium and potassium supplementation. 6. DVT prophylaxis: The patient is on warfarin. The patient's INR is therapeutic. 7. Obesity. Nutrition consult. The patient encouraged to exercise for weight loss. 8. Code status: The patient would like to be a full code. The patient's surrogate decision maker will be her daughter, Kelle Muñoz as above. 9. FEN: The patient will have a heart-healthy diet, no caffeine, with consistent carbohydrate. 10. Disposition: Disposition per primary team. The patient is admitted inpatient for Tikosyn loading. TIME SPENT: Approximately 60 minutes was spent on this consultation, 30 of which was spent [id number] with the patient obtaining history and physical and discussing the treatment plan. The plan was discussed with my attending, Dr. Estrada, and who is in agreement. CARYL MÉNDEZ [id number]/[facility] #: [id number] ROBINA
[2017-11-25] MEDS ORDERED: NS 0.9% 100 ML* 100 ML ONE (23:47)
[2017-11-26] MEDS: Saline FLUSH-PERIPHERAL* 10 ML SYRINGE PERIPH SCH ×4 (00:20→19:47)
[2017-11-26] MEDS: Albuterol HFA INHALER* 8 gm MDI INH PRN ×2 (04:04→19:47)
[2017-11-26] MEDS: Diltiazem TAB* 30 MG PO SCH ×3 (06:01→17:01)
[2017-11-26 06:12] LABS: INR 2.64 (0.77-1.02)
[2017-11-26 06:22] LABS: EGFR Non-African American 64.5 (>60)
[2017-11-26] MEDS ORDERED: Metolazone TAB* 5 MG PO SCH (08:30)
[2017-11-26] MEDS: SITAGLIPTIN 25 MG PO SCH (08:35)
[2017-11-26] MEDS: metFORMIN* 500 MG TAB PO SCH ×2 (08:35→16:43)
[2017-11-26] MEDS: Dofetilide CAP* 250 MCG PO SCH ×2 (08:36→23:44)
[2017-11-26] MEDS: Furosemide TAB* 40 MG PO SCH (09:00)
[2017-11-26] MEDS ORDERED: Potassium Chlor TAB* 20 MEQ TAB.ER PO ONE (09:01)
--- NOTE | 2017-11-26 09:17 | PN ---
Subjective Date of Service: 11/26/17 - CC: FERRO Interval History: The patient states her leg edema has improving with compression stockings and current medications. More FERRO than pre admission. We discussed her normal rhythm while here, her electrolyte disturbances and her prolonged QT. We discussed her diabetes, dietary changes and more. We discussed the findings on her overnight oximetry. Medications Active Medications: Albuterol (Ventolin Hfa Inhaler*) 2 puff INH Q4H PRN PRN Reason: SOB/WHEEZING Last Admin: 11/26/17 04:04 Dose: 2 puff Diltiazem HCl (Cardizem Tab*) 90 mg PO Q6HR [facility] Last Admin: 11/26/17 06:01 Dose: 90 mg Dofetilide (Tikosyn Cap*) 250 mcg PO Q12HR [facility] Last Admin: 11/26/17 08:36 Dose: Not Given Furosemide (Lasix Tab*) 40 mg PO 0900 [facility] Last Admin: 11/26/17 09:00 Dose: 40 mg Metformin HCl (Glucophage*) 500 mg PO 0800,1700 [facility] Last Admin: 11/26/17 08:35 Dose: 500 mg Montelukast Sodium (Singulair Tab*) 10 mg PO 1800 [facility] Last Admin: 11/25/17 17:25 Dose: 10 mg Potassium Chloride (Klor Con Er Tab*) 80 meq PO ONCE ONE Stop: 11/26/17 09:02 Sitagliptin Phosphate (Januvia (Nf)) 50 mg PO DAILY [facility] Last Admin: 11/26/17 08:35 Dose: 50 mg Sodium Chloride ( Peripheral Saline Flush*) 10 ml PERIPH Q8H [facility] Last Admin: 11/26/17 04:03 Dose: 10 ml Warfarin Sodium (Coumadin Tab(*)) 2.5 mg PO SuTuWeThFrSa@1700 [facility] Last Admin: 11/25/17 17:25 Dose: 2.5 mg Warfarin Sodium (Coumadin Tab(*)) 5 mg PO Mo@1700 [facility]; Protocol Objective Vital Signs: Temp Pulse Resp BP Pulse Ox 97.8 F 86 20 111/79 95 11/26/17 07:33 11/26/17 07:33 11/26/17 07:33 11/26/17 07:33 11/26/17 07:33 Oxygen Devices in Use Now: None Appearance: Obese, no distress, seated. Eyes: No Scleral Icterus, PERRLA Ears/Nose/Mouth/Throat: Clear Oropharnyx, Mucous Membranes Moist Neck: Trachea Midline - obese, no appreciable increase JVP Respiratory: Symmetrical Chest Expansion and Respiratory Effort, Clear to Auscultation Cardiovascular: RRR Abdominal: - - morbid obese, non tender Extremities: No Clubbing, Cyanosis - Teds on, mild edema RLE, 1-2+ edema LLE. Neurological: Alert and Oriented x 3, NL Gait Lines/Tubes/Other Access: Clean, Dry and Intact Peripheral IV Laboratory Results: 11/26/17 05:27 INR (Anticoag Therapy) 2.64 (0.77-1.02) H 11/26/17 05:27 TSH 6.09 mcIU/mL (0.34-5.60) H 11/25/17 10:29 Magnesium 2.1 Abnormal Lab Results 11/25/17 11/25/17 11/25/17 10:29 10:29 17:31 INR (Anticoag Therapy) Sodium 139 Potassium 2.9 L Chloride 96 L Carbon Dioxide 32 Anion Gap 11 BUN 24 Creatinine 0.85 Est GFR ( Amer) 82.3 Est GFR (Non-Af Amer) 68.0 BUN/Creatinine Ratio 28.2 H Glucose 156 H POC Glucose (mg/dL) 137 H Hemoglobin A1c 8.1 H Calcium 9.6 Magnesium 1.7 L TSH 6.09 H Thyroxine (T4) 8.75 Total T3 114 11/25/17 11/25/17 11/26/17 19:54 23:49 05:27 INR (Anticoag Therapy) 2.64 H Sodium 139 Potassium 3.1 L Chloride 95 L Carbon Dioxide 35 H Anion Gap 9 BUN 22 Creatinine 0.91 Est GFR ( Amer) 76.0 Est GFR (Non-Af Amer) 62.8 BUN/Creatinine Ratio 24.2 H Glucose 150 H POC Glucose (mg/dL) 124 H Hemoglobin A1c Calcium 9.6 Magnesium 1.9 TSH Thyroxine (T4) Total T3 11/26/17 11/26/17 11/26/17 05:27 08:33 11:31 INR (Anticoag Therapy) Sodium 138 Potassium 3.4 L Chloride 97 L Carbon Dioxide 35 H Anion Gap 6 BUN 21 Creatinine 0.89 Est GFR ( Amer) 78.0 Est GFR (Non-Af Amer) 64.5 BUN/Creatinine Ratio 23.6 H Glucose 162 H POC Glucose (mg/dL) 140 H 137 H Hemoglobin A1c Calcium 9.3 Magnesium 2.3 TSH Thyroxine (T4) Total T3 Diagnostic Imaging: Overnight Oximitery: O2 sats < 90% 11% EKG Data: NSR, 88 bpm, QTc > 500 (greater than in office). Assessment/Plan 62 yo female with longstanding PAF, recurrence and failed Multaq and propafanone. Afib risks include age > 50, morbid obesity, probable CHANDAN, hypertension. Admitted for Tikosyn loading, but to date unable to initiate due to electrolyte disturbances and prolonged QTc. Also adjusting BP and rate lowering regimen to be compatible with Tikosyn. PAF: Repleat KCL more, recheck ECG. If unable to initiate Tikosyn safely, continue rate control, anticoagulation and seek EP assistance. Continue coumodin HTN: Well controlled with cardizem, use short acting today to titrate. As FERRO better with verapamil may go back to this if Tikosyn not initiated. DM: Appreciate hospitalist help and initiation of Metformin + Januvia. Continue metformin unless worsens CHF. Outpatient follow up will be needed with Dr Marroquin. Edema: Inpatient continue lasix. Out patient can refer to vein specialist for LLE >> RLE and possible incompetent vein. Compression stockings helping and Sherri seems to tolerate. Hypoxemia overnight: Will need formal evaluation for CHANDAN. Will give O2 overnight for now.
[2017-11-26] MEDS ORDERED: Perflutren Lipid Microsphere* 3 ML VIAL ONE (13:44)
--- NOTE | 2017-11-26 14:09 | PN ---
Subjective Date of Service: 11/26/17 Interval History: Patient seen and examined at bedside. Denies fever, chills, shortness of breath at rest (states she has baseline SOB with ambulation), palpitations, chest discomfort, N/V/D. Pt states that she is feeling well and is anxious to get home , she is hoping for discharge in the AM. Tele: Sinus rhythm to afib, rate 70-100's. Family History: Unchanged from Admission Social History: Unchanged from Admission Past Medical History: Unchanged from Admission Objective Active Medications: Albuterol (Ventolin Hfa Inhaler*) 2 puff INH Q4H PRN Reason: SOB/WHEEZING Diltiazem HCl (Cardizem Tab*) 90 mg PO Q6HR [facility] Dofetilide (Tikosyn Cap*) 250 mcg PO Q12HR [facility] Furosemide (Lasix Tab*) 40 mg PO 0900 [facility] Metformin HCl (Glucophage*) 500 mg PO 0800,1700 [facility] Montelukast Sodium (Singulair Tab*) 10 mg PO 1800 [facility] Sitagliptin Phosphate (Januvia (Nf)) 50 mg PO DAILY [facility] Sodium Chloride ( Peripheral Saline Flush*) 10 ml PERIPH Q8H [facility] Warfarin Sodium (Coumadin Tab(*)) 2.5 mg PO SuTuWeThFrSa@1700 [facility] Warfarin Sodium (Coumadin Tab(*)) 5 mg PO Mo@1700 [facility]; Protocol Vital Signs - 8 hr 11/26/17 11/26/17 11/26/17 06:09 07:33 08:00 Temperature 97.8 F Pulse Rate 86 Respiratory 20 18 Rate Blood Pressure 111/79 (mmHg) O2 Sat by Pulse 96 95 95 Oximetry 11/26/17 11:14 Temperature 98.2 F Pulse Rate 85 Respiratory 20 Rate Blood Pressure 119/90 (mmHg) O2 Sat by Pulse 97 Oximetry Oxygen Devices in Use Now: None Appearance: NAD, sitting up in a chair Ears/Nose/Mouth/Throat: Mucous Membranes Moist Respiratory: Symmetrical Chest Expansion and Respiratory Effort, Clear to Auscultation Cardiovascular: NL Sounds; No Murmurs; No JVD, - - Heart rate irregular Abdominal: NL Sounds; No Tenderness; No Distention Extremities: - - 1+ bilateral LE edema Skin: No Rash or Ulcers Neurological: Alert and Oriented x 3, NL Muscle Strength and Tone Lines/Tubes/Other Access: Clean, Dry and Intact Peripheral IV - site benign Nutrition: Taking PO's Result Diagrams: 11/26/17 14:27 Assess/Plan/Problems-Billing Assessment: Ms. Manuel is a 62 yo female with PMH significant for P afib, asthma, morbid obesity, and DM who presented to the hospital for Tikosyn loading, but due to electrolyte abnormalities and a prolonged QTc the patient has not been able to receive her Tikosyn load. - Patient Problems (1) Paroxysmal A-fib Code(s): I48.0 - PAROXYSMAL ATRIAL FIBRILLATION SNOMED Code(s): 596151442 Comment: - Rate controlled - Management per Cardiology - Continue diltiazem (2) Electrolyte abnormality Code(s): E87.8 - OTH DISORDERS OF ELECTROLYTE AND FLUID BALANCE, NEC SNOMED Code(s): 180275365 Comment: - Hypokalemia. Resolved with replacement - Hypomagnesemia. Resolved with replacement (3) Prolonged QT interval Code(s): R94.31 - ABNORMAL ELECTROCARDIOGRAM [ECG] [EKG] SNOMED Code(s): 469808422 Comment: - Management per Cardiology - Avoid QT prolonging medications (4) Diabetes Code(s): E11.9 - TYPE 2 DIABETES MELLITUS WITHOUT COMPLICATIONS SNOMED Code(s) : 80153725 Comment: - HgA1C 8.1 - Glucose 120-140's - Continue Metformin and Janauvia (5) Asthma Code(s): J45.909 - UNSPECIFIED ASTHMA, UNCOMPLICATED SNOMED Code(s): 394348421 Comment: - Moderate persistent - No signs of acute exacerbation at this time - Continue home medications (6) Lower extremity edema Code(s): R60.0 - LOCALIZED EDEMA SNOMED Code(s): 138755584 Comment: - TTE pending - Continue lasix - Metolazone on hold (7) Morbid obesity Code(s): E66.01 - MORBID (SEVERE) OBESITY DUE TO EXCESS CALORIES SNOMED Code(s ): 673231146 Comment: - BMI ~ 57 (8) DVT prophylaxis Code(s): PAH5216 - SNOMED Code(s): 980492997 Comment: - Continue warfarin (9) Full code status Code(s): Z78.9 - OTHER SPECIFIED HEALTH STATUS SNOMED Code(s): 952231699 Status and Disposition: Inpatient. Disposition per cardiology. Thank you for this consultation, we will continue to follow along.
[2017-11-26] MEDS: Warfarin TAB(*) 2.5 MG PO SCH (16:38)
[2017-11-26] MEDS: Montelukast Sodium TAB* 10 MG PO SCH (17:01)
--- NOTE | 2017-11-26 23:45 | ECHO ---
Patient: DOROTA MASSEY [facility] Rec#: [id number] : 1955 Date: 11/26/2017 Age: 62y Height: 168 cm / 66.1 in Weight: 161 kg / 354.8 lbs Sex: F BSA: 2.56 Room#: 447 Admit Date#: 11/25/2017 Type: Inpatient Referring: Mauri Dominguez Reading: Ricarda Palumbo MD Tool Repairer Bench: Helen Harris RD,RDMS CC: Ricarda Palumbo MD Transthoracic Echocardiogram Indication: EDEMA BP: 105/65 HR: 92 Rhythm: NSR Findings History: AFLUTTER, PE, HTN, DM Technical Comments: The study is technically limited due to patient body habitus. Left Ventricle: The left ventricular chamber size is normal. Mild concentric left ventricular hypertrophy is observed. Global left ventricular wall motion and contractility are within normal limits. The estimated ejection fraction is 50-55%. There is no consistent Doppler evidence of clinically significant diastolic dysfunction. Left Atrium: The left atrium is slightly dilated. Right Ventricle: The right ventricular chamber size and systolic function are within normal limits. The right ventricle wall thickness is mildly increased. Right Atrium: The right atrium is mildly dilated. Aortic Valve: The aortic valve is trileaflet. The aortic valve leaflets are mildly thickened. There is no evidence of aortic regurgitation. There is no evidence of aortic stenosis. Mitral Valve: The mitral valve leaflets appear normal. There is mitral annular calcification. There is a trace of mitral regurgitation. There is no evidence of mitral stenosis. Tricuspid Valve: The tricuspid valve structure is not well visualized. The tricuspid valve leaflets are not thickened. There is no evidence of tricuspid valve regurgitation. Unable to estimate the right ventricular systolic pressure. Pulmonic Valve: The pulmonic valve structure is not well visualized. Pericardium: There is no significant pericardial effusion. Aorta: The ascending aorta is not well visualized. The aortic arch is not well visualized. The aortic root is normal in size. Pulmonary Artery: The main pulmonary artery is not well visualized. Venous: The inferior vena cava is dilated. There is a greater than 50% respiratory change in the inferior vena cava dimension. Contrast: Definity was used to optimize study. A total of 4 ml was used Conclusions Mild concentric left ventricular hypertrophy is observed. Global left ventricular wall motion and contractility are within normal limits. The estimated ejection fraction is 50-55%. The right ventricle wall thickness is mildly increased. The right ventricular chamber size and systolic function are within normal limits. There is a trace of mitral regurgitation. There is mitral annular calcification. The inferior vena cava is dilated. Prior echo not available at this time to compare. Measurements Name Value Normal Range RVIDd (AP) 2D 2.7 cm (0.9 - 2.6) RAd ISD 4CH 5.6 cm (3.4 - 4.9) RA (A4C)W 3.3 cm (2.9 - 4.6) IVSd (2D) 1.2 cm (0.6 - 1) LVPWd (2D) 1.2 cm (0.6 - 1) LVIDd (2D) 5.3 cm (3.6 - 5.4) LVIDs (2D) 4 cm - LV FS (2D) 26 % (25 - 45) Aortic Annulus 2.3 cm (1.4 - 2.6) Ao root diameter (2D) 3.1 cm (2.1 - 3.5) LA dimension (AP) 2D 4.9 cm (2.3 - 3.8) LAd ISD 4CH 6.4 cm (2.9 - 5.3) LA ISD 4CH W 4.3 cm (2.5 - 4.5) Name Value Normal Range LA ESV BP (A/L) index 32 ml/m2 - Name Value Normal Range MV E-wave Vmax 0.8 m/sec - MV deceleration time 89 msec - MV A-wave Vmax 0.5 m/sec - MV E:A ratio 1.6 ratio - LV septal e' Vmax 0.08 m/sec - LV lateral e' Vmax 0.04 m/sec - LV E:e' septal ratio 10 ratio - LV E:e' lateral ratio 20 ratio - Name Value Normal Range AV Vmax 1.8 m/sec - AV VTI 30 cm - AV peak gradient 13 mmHg - AV mean gradient 7 mmHg - LVOT Vmax 1 m/sec - LVOT VTI 18 cm - LVOT peak gradient 4 mmHg - LVOT mean gradient 3 mmHg - AREN Vmax 0.6 m/sec - Name Value Normal Range RAP 8 mmHg - IVC diameter 2.8 cm - Name Value Normal Range PV Vmax 1 m/sec - PV peak gradient 4 mmHg -
[2017-11-27] MEDS: Albuterol HFA INHALER* 8 gm MDI INH PRN (01:26)
[2017-11-27] MEDS: Diltiazem TAB* 30 MG PO SCH ×3 (01:37→11:51)
[2017-11-27 08:18] VITALS: BP 116/68
[2017-11-27] MEDS: metFORMIN* 500 MG TAB PO SCH (08:28)
[2017-11-27] MEDS: Furosemide TAB* 40 MG PO SCH (08:28)
[2017-11-27] MEDS: SITAGLIPTIN 25 MG PO SCH (08:28)
[2017-11-27] MEDS: Saline FLUSH-PERIPHERAL* 10 ML SYRINGE PERIPH SCH ×2 (08:32→11:52)
[2017-11-27 09:15] LABS: INR 2.25 (0.77-1.02)
[2017-11-27 09:19] LABS: EGFR Non-African American 72.9 (>60)
--- NOTE | 2017-11-27 09:26 | PN ---
Subjective Date of Service: 11/27/17 Interval History: Patient seen and examined at bedside. Denies fever, chills, shortness of breath (at her baseline), chest discomfort, N/V/D. Pt states that she continues to have bilateral LE edema that she feels is improving. Pt is feeling well and is anxious to go home. She is comfortable with her discharge and states understanding about the new diabetes management. Tele: Sinus rhythm, rate 70-80's. Pt noted to have intermittent episodes of a fib. Family History: Unchanged from Admission Social History: Unchanged from Admission Past Medical History: Unchanged from Admission Objective Active Medications: Albuterol (Ventolin Hfa Inhaler*) 2 puff INH Q4H PRN Reason: SOB/WHEEZING Diltiazem HCl (Cardizem Tab*) 90 mg PO Q6HR REGINE Furosemide (Lasix Tab*) 40 mg PO 0900 REGINE Metformin HCl (Glucophage*) 500 mg PO 0800,1700 REGINE Montelukast Sodium (Singulair Tab*) 10 mg PO 1800 REGINE Sitagliptin Phosphate (Januvia (Nf)) 50 mg PO DAILY REGINE Sodium Chloride ( Peripheral Saline Flush*) 10 ml PERIPH Q8H REGINE Warfarin Sodium (Coumadin Tab(*)) 2.5 mg PO SuTuWeThFrSa@1700 REGINE Warfarin Sodium (Coumadin Tab(*)) 5 mg PO Mo@1700 REGINE; Protocol Vital Signs - 8 hr 11/27/17 11/27/17 11/27/17 01:28 03:43 07:45 Temperature 98.0 F 98.3 F Pulse Rate 74 79 80 Respiratory 18 22 16 Rate Blood Pressure 123/62 116/68 (mmHg) O2 Sat by Pulse 94 95 96 Oximetry Oxygen Devices in Use Now: None Appearance: NAD, sitting up in a chair Ears/Nose/Mouth/Throat: Mucous Membranes Moist Respiratory: Symmetrical Chest Expansion and Respiratory Effort, Clear to Auscultation - , diminished Cardiovascular: NL Sounds; No Murmurs; No JVD, RRR - , occational irregular beats Abdominal: NL Sounds; No Tenderness; No Distention Extremities: - - Trace to 1+ bilateral LE edema Skin: No Rash or Ulcers Neurological: Alert and Oriented x 3, NL Muscle Strength and Tone Lines/Tubes/Other Access: Clean, Dry and Intact Peripheral IV - site benign Nutrition: Taking PO's Result Diagrams: 11/27/17 08:55 Assess/Plan/Problems-Billing Assessment: Ms. Manuel is a 62 yo female with PMH significant for P afib, asthma, morbid obesity, and DM who presented to the hospital for Tikosyn loading, but due to electrolyte abnormalities and a prolonged QTc the patient has not been able to receive her Tikosyn load. - Patient Problems (1) Paroxysmal A-fib Code(s): I48.0 - PAROXYSMAL ATRIAL FIBRILLATION SNOMED Code(s): 190204023 Comment: - Rate controlled - Management per Cardiology - Continue diltiazem (2) Electrolyte abnormality Code(s): E87.8 - OTH DISORDERS OF ELECTROLYTE AND FLUID BALANCE, NEC SNOMED Code(s): 052627426 Comment: - Hypokalemia. Resolved with replacement - Hypomagnesemia. Resolved with replacement (3) Prolonged QT interval Code(s): R94.31 - ABNORMAL ELECTROCARDIOGRAM [ECG] [EKG] SNOMED Code(s): 838308603 Comment: - Management per Cardiology - Avoid QT prolonging medications (4) Diabetes Code(s): E11.9 - TYPE 2 DIABETES MELLITUS WITHOUT COMPLICATIONS SNOMED Code(s) : 53550992 Comment: - HgA1C 8.1 - Glucose 130-170's - Continue Metformin and Janauvia - Plan for diabetes consult at [facility] (5) Asthma Code(s): J45.909 - UNSPECIFIED ASTHMA, UNCOMPLICATED SNOMED Code(s): 162925794 Comment: - Moderate persistent - No signs of acute exacerbation at this time - Continue home medications (6) Lower extremity edema Code(s): R60.0 - LOCALIZED EDEMA SNOMED Code(s): 836532671 Comment: - TTE pending - Continue lasix - Metolazone on hold (7) Morbid obesity Code(s): E66.01 - MORBID (SEVERE) OBESITY DUE TO EXCESS CALORIES SNOMED Code(s ): 489184635 Comment: - BMI ~ 57 (8) DVT prophylaxis Code(s): CUP7615 - SNOMED Code(s): 598971733 Comment: - Continue warfarin (9) Full code status Code(s): Z78.9 - OTHER SPECIFIED HEALTH STATUS SNOMED Code(s): 247589886 Status and Disposition: Inpatient. Disposition per cardiology. Plan for discharge to home today. Thank you for this consultation, we will sign off at this time.
[2017-11-30] MEDS ORDERED: Warfarin TAB(*) 5 MG PO SCH (17:00)
== END 2017-11-27 13:45 | disposition home or self-care (01) | DRG 201 ==
LOC: MEDTELE 09:07
PROVIDERS: ADMIT Specialist; ATTEND Internal Medicine
DX: I48.0 Paroxysmal atrial fibrillation (principal); Z68.43 Body mass index [BMI] 50.0-59.9, adult; I47.2 Ventricular tachycardia; I48.92 Unspecified atrial flutter; I10 Essential (primary) hypertension; I45.81 Long QT syndrome; E11.9 Type 2 diabetes mellitus without complications; J45.909 Unspecified asthma, uncomplicated; E66.01 Morbid (severe) obesity due to excess calories; E83.42 Hypomagnesemia; E87.6 Hypokalemia; M19.90 Unspecified osteoarthritis, unspecified site; Z79.01 Long term (current) use of anticoagulants; Z79.899 Other long term (current) drug therapy; Z88.1 Allergy status to other antibiotic agents; Z91.041 Radiographic dye allergy status; Z88.8 Allergy status to other drugs, medicaments and biological substances; Z91.048 Other nonmedicinal substance allergy status; Z82.49 Family history of ischemic heart disease and other diseases of the circulatory system; Z87.891 Personal history of nicotine dependence; Z79.84 Long term (current) use of oral hypoglycemic drugs
CPT/HCPCS: 36415; 80048; 83036; 83735; 84132; 84436; 84443; 84479; 85610; 93005; 93306; 94640; 94762; A9270-GY; C8929; J3475

== ENCOUNTER 2021-12-25 14:12 | Observation (INO) ==
[2021-12-25 16:06] LABS: Hematocrit 40 % (35-47); Hemoglobin 12.4 g/dL (12.0-16.0); Mean Corpuscular HGB Conc 32 g/dL (31-36); Mean Corpuscular Hemoglobin 27 pg (27-31); Mean Corpuscular Volume 84 fL (80-97); Platelet Count 364 10^3/uL (150-450); Red Cell Distribution Width 17 % (10-15); White Blood Count 13.3 10^3/uL (3.5-10.8)
[2021-12-25] MEDS ORDERED: Piperacillin/Tazobac ADVAN 3.375 GM in NS 0.9% 100 ml BAG 100 ML IV ONE (16:30)
[2021-12-25 16:57] LABS: Albumin 3.7 g/dL (3.2-5.2); Albumin/Globulin Ratio 1.2 (1-3); C Reactive Protein 13.75 mg/L (<8.01); Calcium 9.6 mg/dL (8.6-10.3); Globulin 3.2 g/dL (2-4); Total Bilirubin 0.5 mg/dL (0.2-1.0); Total Protein 6.9 g/dL (6.4-8.9); eGFR CKD-EPI 52.3 (>60)
[2021-12-25 16:59] LABS: ABS Basophils 0.1 10^3/ul (0-0.2); ABS Eosinophils 0.1 10^3/ul (0-0.6); ABS Lymphocytes 1.9 10^3/ul (1.0-4.8); ABS Monocytes 0.8 10^3/ul (0-0.8); ABS Neutrophils 10.4 10^3/ul (1.5-7.7); Lymphocyte % 14.1 %; Nucleated Red Blood Cells % 0.2
[2021-12-25] MEDS ORDERED: Ondansetron 4 mg VIAL 2 MG/ML 2 ml VIAL IV PRN (18:03)
[2021-12-25] MEDS ORDERED: Dextrose 50% Syringe 50 ml 25 GM/50 ML SYRINGE IV PUSH PRN (18:05)
[2021-12-25 18:52] LABS: Erythrocyte Sed Rate 45 mm/Hr (0-29)
[2021-12-25] MEDS ORDERED: Zosyn per Pharmacy NOTE FOLLOW UP SCH (19:00)
[2021-12-25] MEDS: ZOSYN 3.375 GM Q8H per EXTENDED INFUSION IV SCH (22:44)
[2021-12-26] MEDS ORDERED: Mometasone/Formoter 200/5 MDI INH SCH (07:00)
[2021-12-26] MEDS ORDERED: Albuterol HFA INHALER 8 gm MDI INH PRN (07:29)
[2021-12-26] MEDS: ZOSYN 3.375 GM Q8H per EXTENDED INFUSION IV SCH (07:42)
[2021-12-26] MEDS ORDERED: Potassium Chlor 20 meq TAB.ER PO SCH (09:00)
[2021-12-26] MEDS ORDERED: GENTAMICIN 0.1% TOPICAL SCH (09:00)
[2021-12-26] MEDS ORDERED: Insulin GLARGINE 100 un/ml 10 ml VIAL SUBCUT SCH (09:00)
[2021-12-26 10:39] LABS: ABS Basophils 0.1 10^3/ul (0-0.2); ABS Eosinophils 0.1 10^3/ul (0-0.6); ABS Lymphocytes 1.6 10^3/ul (1.0-4.8); ABS Monocytes 0.6 10^3/ul (0-0.8); ABS Neutrophils 8.4 10^3/ul (1.5-7.7); Eosinophil % 0.7 %; Hematocrit 38 % (35-47); Hemoglobin 12.1 g/dL (12.0-16.0); Lymphocyte % 15.2 %; Mean Corpuscular HGB Conc 32 g/dL (31-36); Mean Corpuscular Hemoglobin 27 pg (27-31); Mean Corpuscular Volume 84 fL (80-97); Platelet Count 354 10^3/uL (150-450); Red Blood Count 4.56 10^6 /uL (3.70-4.87); Red Cell Distribution Width 17 % (10-15); White Blood Count 10.7 10^3/uL (3.5-10.8)
[2021-12-26 11:25] LABS: Calcium 9.2 mg/dL (8.6-10.3); Potassium 4.9 mmol/L (3.5-5.0); eGFR CKD-EPI 55.2 (>60)
[2021-12-26 14:02] VITALS: BP 106/61
== END 2021-12-26 13:59 | disposition home or self-care (01) ==
LOC: ED 14:12 → EDHOLD 14:12
PROVIDERS: ADMIT Student in an Organized Health Care Education/Training Program; ATTEND Student in an Organized Health Care Education/Training Program

== ENCOUNTER 2022-02-06 20:00 | Inpatient (IN) ==
[2022-02-06 21:15] LABS: Hematocrit 44 % (35-47); Hemoglobin 13.7 g/dL (12.0-16.0); Mean Corpuscular HGB Conc 31 g/dL (31-36); Mean Corpuscular Hemoglobin 26 pg (27-31); Mean Corpuscular Volume 83 fL (80-97); Mean Platelet Volume 7.7 fL (7.4-10.4); Platelet Count 354 10^3/uL (150-450); Red Blood Count 5.25 10^6 /uL (3.70-4.87); Red Cell Distribution Width 18 % (10-15); White Blood Count 16.1 10^3/uL (3.5-10.8)
[2022-02-06 21:35] LABS: ABS Basophils 0.1 10^3/ul (0-0.2); ABS Eosinophils 0.1 10^3/ul (0-0.6); ABS Lymphocytes 2.6 10^3/ul (1.0-4.8); ABS Monocytes 0.9 10^3/ul (0-0.8); ABS Neutrophils 12.4 10^3/ul (1.5-7.7); Eosinophil % 0.8 %
[2022-02-06 21:45] LABS: Albumin 4.1 g/dL (3.2-5.2); Albumin/Globulin Ratio 1.1 (1-3); C Reactive Protein 20.5 mg/L (<8.01); Calcium 9.8 mg/dL (8.6-10.3); Globulin 3.6 g/dL (2-4); Total Bilirubin 0.4 mg/dL (0.2-1.0); Total Protein 7.7 g/dL (6.4-8.9); eGFR CKD-EPI 38.1 (>60)
[2022-02-06 22:01] LABS: Potassium 6.6 mmol/L (3.5-5.0)
[2022-02-06 23:11] LABS: Urine Appearance Cloudy; Urine Bilirubin Negative (Negative); Urine Blood Negative (Negative); Urine Color Yellow; Urine Glucose Negative (Negative); Urine Ketones Negative (Negative); Urine Nitrite Positive (Negative); Urine Protein Negative (Negative); Urine Urobilinogen Negative (Negative)
[2022-02-06 23:21] LABS: Urine Bacteria 3+ (Absent); Urine Red Blood Cell Trace(0-2/hpf) (Absent); Urine Squamous Epithelial Cell Present (Absent); Urine White Blood Cell 3+(>20/hpf) (Absent)
[2022-02-07 00:39] LABS: Calcium 9.7 mg/dL (8.6-10.3)
[2022-02-07 00:51] LABS: Potassium 6.1 mmol/L (3.5-5.0)
[2022-02-07] MEDS ORDERED: Ondansetron 4 mg VIAL 2 MG/ML 2 ml VIAL IV PRN (01:39)
[2022-02-07] MEDS ORDERED: Albuterol HFA INHALER 8 gm MDI INH PRN (01:40)
[2022-02-07] MEDS ORDERED: Dextrose 50% Syringe 50 ml 25 GM/50 ML SYRINGE IV PUSH PRN (01:43)
[2022-02-07] MEDS ORDERED: SODIUM ZIRCONIUM CYCLOSILICATE 10 GM PACKET PO ONE ×2 (01:44→10:56)
[2022-02-07] MEDS: Gentamicin 0.1% OINTMENT 15 GM TUBE TOPICAL SCH (10:09)
[2022-02-07] MEDS: Insulin GLARGINE 100 un/ml 10 ml VIAL SUBCUT SCH (10:18)
[2022-02-07 10:50] LABS: Calcium 9.9 mg/dL (8.6-10.3)
[2022-02-07 10:52] LABS: Potassium 6.4 mmol/L (3.5-5.0)
[2022-02-07] MEDS: cefTRIAXone 1 gm/50 mL D5W 1 GM/50 ML BAG IV SCH (10:54)
[2022-02-07] MEDS: Nystatin TOP POWDER 15 GM BTL TOPICAL SCH ×2 (14:17→21:54)
[2022-02-07 14:24] LABS: Calcium 9.3 mg/dL (8.6-10.3); eGFR CKD-EPI 38.4 (>60)
[2022-02-07 14:25] LABS: Potassium 5.5 mmol/L (3.5-5.0)
[2022-02-07 16:18] LABS: Osmolality Serum 304 mOsm/kg (275-295)
[2022-02-07] MEDS: Mometasone/Formoter 200/5 MDI INH SCH (21:00)
[2022-02-08 06:03] LABS: Hematocrit 41 % (35-47); Hemoglobin 12.6 g/dL (12.0-16.0); Mean Corpuscular HGB Conc 31 g/dL (31-36); Mean Corpuscular Hemoglobin 26 pg (27-31); Mean Corpuscular Volume 86 fL (80-97); Mean Platelet Volume 7.7 fL (7.4-10.4); Platelet Count 272 10^3/uL (150-450); Red Blood Count 4.78 10^6 /uL (3.70-4.87); Red Cell Distribution Width 18 % (10-15); White Blood Count 15.3 10^3/uL (3.5-10.8)
[2022-02-08 06:05] LABS: ABS Eosinophils 0.1 10^3/ul (0-0.6); ABS Lymphocytes 2.8 10^3/ul (1.0-4.8); ABS Neutrophils 11.3 10^3/ul (1.5-7.7); Eosinophil % 0.7 %; Lymphocyte % 18.2 %
[2022-02-08 06:41] LABS: CO2 Carbon Dioxide 15 mmol/L (22-32); Calcium 9.4 mg/dL (8.6-10.3); Chloride 95 mmol/L (101-111); Sodium 123 mmol/L (135-145)
[2022-02-08 06:47] LABS: Blood Urea Nitrogen 75 mg/dL (6-24); Glucose 191 mg/dL (70-100); eGFR CKD-EPI 38.1 (>60)
[2022-02-08 06:50] LABS: Anion Gap 13 mmol/L (2-11)
[2022-02-08] MEDS ORDERED: NS 0.9% 1000 ml BAG 1,000 ML IV SCH (07:45)
[2022-02-08] MEDS: Mometasone/Formoter 200/5 MDI INH SCH ×2 (07:47→20:09)
[2022-02-08] MEDS: Nystatin TOP POWDER 15 GM BTL TOPICAL SCH ×2 (08:05→15:46)
[2022-02-08] MEDS: Gentamicin 0.1% OINTMENT 15 GM TUBE TOPICAL SCH (08:05)
[2022-02-08] MEDS: cefTRIAXone 1 gm/50 mL D5W 1 GM/50 ML BAG IV SCH (08:05)
[2022-02-08] MEDS: Insulin GLARGINE 100 un/ml 10 ml VIAL SUBCUT SCH (09:09)
[2022-02-08] MEDS ORDERED: SODIUM ZIRCONIUM CYCLOSILICATE 10 GM PACKET PO ONE (09:26)
[2022-02-08 13:05] LABS: Urine Creatinine Concentration 120.32 mg/dL; Urine Sodium Concentration < 18 mmol/L
[2022-02-08 13:13] LABS: Urine Osmo 617 mOsm/kg (150-1150)
[2022-02-08 15:02] LABS: Calcium 8.9 mg/dL (8.6-10.3); eGFR CKD-EPI 30.9 (>60)
[2022-02-09] MEDS: Nystatin TOP POWDER 15 GM BTL TOPICAL SCH ×4 (01:01→20:25)
[2022-02-09 05:59] LABS: Hematocrit 38 % (35-47); Hemoglobin 12.1 g/dL (12.0-16.0); Mean Corpuscular HGB Conc 32 g/dL (31-36); Mean Corpuscular Hemoglobin 27 pg (27-31); Mean Corpuscular Volume 83 fL (80-97); Mean Platelet Volume 7.7 fL (7.4-10.4); Platelet Count 325 10^3/uL (150-450); Red Blood Count 4.54 10^6 /uL (3.70-4.87); Red Cell Distribution Width 17 % (10-15); White Blood Count 14.1 10^3/uL (3.5-10.8)
[2022-02-09 06:25] LABS: ABS Basophils 0.1 10^3/ul (0-0.2); ABS Eosinophils 0.1 10^3/ul (0-0.6); ABS Lymphocytes 3.1 10^3/ul (1.0-4.8); ABS Monocytes 0.9 10^3/ul (0-0.8); ABS Neutrophils 9.7 10^3/ul (1.5-7.7); Eosinophil % 0.8 %; Lymphocyte % 22.2 %
[2022-02-09 06:26] LABS: Anisocytosis 1+; Polychromasia 1+
[2022-02-09 06:30] LABS: C Reactive Protein 41.63 mg/L (<8.01); Calcium 9.3 mg/dL (8.6-10.3); eGFR CKD-EPI 39.4 (>60)
[2022-02-09 06:31] LABS: Potassium 5.1 mmol/L (3.5-5.0)
[2022-02-09] MEDS: Mometasone/Formoter 200/5 MDI INH SCH ×2 (06:55→18:58)
[2022-02-09] MEDS: cefTRIAXone 1 gm/50 mL D5W 1 GM/50 ML BAG IV SCH (07:39)
[2022-02-09 08:15] LABS: TSH Ultra Thyroid Stim Horm 7.38 mcIU/mL (0.34-5.60)
[2022-02-09] MEDS: Insulin GLARGINE 100 un/ml 10 ml VIAL SUBCUT SCH (09:05)
[2022-02-09] MEDS: Gentamicin 0.1% OINTMENT 15 GM TUBE TOPICAL SCH (09:06)
[2022-02-10 06:46] LABS: Hematocrit 37 % (35-47); Hemoglobin 11.8 g/dL (12.0-16.0); Mean Corpuscular HGB Conc 32 g/dL (31-36); Mean Corpuscular Hemoglobin 26 pg (27-31); Mean Corpuscular Volume 84 fL (80-97); Mean Platelet Volume 8.2 fL (7.4-10.4); Platelet Count 320 10^3/uL (150-450); Red Blood Count 4.47 10^6 /uL (3.70-4.87); Red Cell Distribution Width 18 % (10-15); White Blood Count 13.8 10^3/uL (3.5-10.8)
[2022-02-10 06:54] LABS: Calcium 9.2 mg/dL (8.6-10.3); Magnesium 2.1 mg/dL (1.9-2.7); eGFR CKD-EPI 34.8 (>60)
[2022-02-10 07:02] LABS: ABS Eosinophils 0.1 10^3/ul (0-0.6); ABS Lymphocytes 2.2 10^3/ul (1.0-4.8); ABS Monocytes 0.8 10^3/ul (0-0.8); ABS Neutrophils 10.6 10^3/ul (1.5-7.7); Eosinophil % 0.9 %; Lymphocyte % 16.3 %
[2022-02-10] MEDS: Mometasone/Formoter 200/5 MDI INH SCH ×2 (07:38→19:00)
[2022-02-10] MEDS: Insulin GLARGINE 100 un/ml 10 ml VIAL SUBCUT SCH (09:57)
[2022-02-10] MEDS: Nystatin TOP POWDER 15 GM BTL TOPICAL SCH ×3 (10:10→22:39)
[2022-02-10] MEDS: Gentamicin 0.1% OINTMENT 15 GM TUBE TOPICAL SCH (10:11)
[2022-02-11 08:00] LABS: Hematocrit 36 % (35-47); Hemoglobin 11.8 g/dL (12.0-16.0); Mean Corpuscular HGB Conc 33 g/dL (31-36); Mean Corpuscular Hemoglobin 27 pg (27-31); Mean Corpuscular Volume 83 fL (80-97); Mean Platelet Volume 7.8 fL (7.4-10.4); Platelet Count 336 10^3/uL (150-450); Red Blood Count 4.38 10^6 /uL (3.70-4.87); Red Cell Distribution Width 18 % (10-15); White Blood Count 13.3 10^3/uL (3.5-10.8)
[2022-02-11] MEDS: Insulin GLARGINE 100 un/ml 10 ml VIAL SUBCUT SCH (08:05)
[2022-02-11] MEDS: Gentamicin 0.1% OINTMENT 15 GM TUBE TOPICAL SCH (08:06)
[2022-02-11] MEDS: Nystatin TOP POWDER 15 GM BTL TOPICAL SCH ×3 (08:07→22:20)
[2022-02-11 08:34] LABS: Calcium 8.9 mg/dL (8.6-10.3); Potassium 4.3 mmol/L (3.5-5.0); eGFR CKD-EPI 36.1 (>60)
[2022-02-11] MEDS: Mometasone/Formoter 200/5 MDI INH SCH ×2 (08:47→19:57)
[2022-02-11 08:49] LABS: ABS Basophils 0.1 10^3/ul (0-0.2); ABS Eosinophils 0.1 10^3/ul (0-0.6); ABS Lymphocytes 2.5 10^3/ul (1.0-4.8); ABS Monocytes 0.7 10^3/ul (0-0.8); ABS Neutrophils 9.8 10^3/ul (1.5-7.7); Eosinophil % 0.7 %; Lymphocyte % 18.5 %; Nucleated Red Blood Cells % 0.1
[2022-02-12 05:41] LABS: Hematocrit 36 % (35-47); Hemoglobin 11.5 g/dL (12.0-16.0); Mean Corpuscular HGB Conc 32 g/dL (31-36); Mean Corpuscular Hemoglobin 27 pg (27-31); Mean Corpuscular Volume 84 fL (80-97); Mean Platelet Volume 7.7 fL (7.4-10.4); Platelet Count 333 10^3/uL (150-450); Red Blood Count 4.29 10^6 /uL (3.70-4.87); Red Cell Distribution Width 18 % (10-15); White Blood Count 12.5 10^3/uL (3.5-10.8)
[2022-02-12 05:48] LABS: ABS Basophils 0.1 10^3/ul (0-0.2); ABS Eosinophils 0.1 10^3/ul (0-0.6); ABS Lymphocytes 2.3 10^3/ul (1.0-4.8); ABS Monocytes 0.8 10^3/ul (0-0.8); ABS Neutrophils 9.2 10^3/ul (1.5-7.7); Eosinophil % 0.8 %; Lymphocyte % 18.7 %
[2022-02-12 05:58] LABS: Calcium 9.1 mg/dL (8.6-10.3); Magnesium 2.1 mg/dL (1.9-2.7); Potassium 4.4 mmol/L (3.5-5.0); eGFR CKD-EPI 36.4 (>60)
[2022-02-12 07:13] VITALS: BP 95/51
[2022-02-12] MEDS: Mometasone/Formoter 200/5 MDI INH SCH (07:42)
[2022-02-12] MEDS: Nystatin TOP POWDER 15 GM BTL TOPICAL SCH (09:26)
[2022-02-12] MEDS: Gentamicin 0.1% OINTMENT 15 GM TUBE TOPICAL SCH (09:26)
[2022-02-12] MEDS: Insulin GLARGINE 100 un/ml 10 ml VIAL SUBCUT SCH (10:08)
[2022-02-12 13:00] LABS: Rapid COVID-19 Molecular Undetected (Undetected)
== END 2022-02-12 11:02 | DRG 641 ==
LOC: ED 20:00 → EDHOLD 20:00 → MED 02-07 09:00 → SUATTDRO 02-07 14:28 → MED 02-10 00:19
PROVIDERS: ADMIT Student in an Organized Health Care Education/Training Program; ATTEND Internal Medicine

== ENCOUNTER 2022-07-07 21:57 | Inpatient (IN) ==
[2022-07-07] MEDS ORDERED: Lactated Ringers SEPSIS* BAG 1,780 ML IV ONE (23:08)
[2022-07-07] MEDS ORDERED: Clotrimazole 1% CREAM 30 gm TOPICAL ONE (23:09)
[2022-07-08 00:55] LABS: Hematocrit 40 % (35-47); Hemoglobin 12.6 g/dL (12.0-16.0); Mean Corpuscular HGB Conc 32 g/dL (31-36); Mean Corpuscular Hemoglobin 26 pg (27-31); Mean Corpuscular Volume 82 fL (80-97); Mean Platelet Volume 8.1 fL (7.4-10.4); Platelet Count 558 10^3/uL (150-450); Red Blood Count 4.89 10^6 /uL (3.70-4.87); Red Cell Distribution Width 19 % (10-15); White Blood Count 19.8 10^3/uL (3.5-10.8)
[2022-07-08 00:59] LABS: Activated Partial Thrombo Time 33.9 seconds (26.0-38.0); INR 1.43 (0.88-1.18)
[2022-07-08 01:26] LABS: Anisocytosis 1+
[2022-07-08 01:27] LABS: ABS Basophils 0.1 10^3/ul (0-0.2); ABS Lymphocytes 2.2 10^3/ul (1.0-4.8); ABS Neutrophils 16.6 10^3/ul (1.5-7.7); Eosinophil % 0.1 %; Lymphocyte % 10.9 %; Polychromasia 1+
[2022-07-08 01:31] LABS: Albumin 3.9 g/dL (3.2-5.2); C Reactive Protein 47.35 mg/L (<8.01); Calcium 10.3 mg/dL (8.6-10.3); Creatinine, Serum 2.12 mg/dL (0.51-0.95); Globulin 4.1 g/dL (2-4); Total Bilirubin 0.7 mg/dL (0.2-1.0); eGFR CKD-EPI 25.2 (>60)
[2022-07-08 01:33] LABS: Potassium 7.7 mmol/L (3.5-5.0)
[2022-07-08] MEDS ORDERED: Morphine 4 MG/ML VIAL (1 ml) IV ONE (01:37)
[2022-07-08] MEDS ORDERED: Calcium Gluconate 4 GM in NS 0.9% 250 ml 250 ML IV ONE (01:38)
[2022-07-08] MEDS ORDERED: Sodium Polystyrene ORAL.SUSP 15 GM/60 ML BTL PO ONE ×3 (01:49→07:03)
[2022-07-08 02:03] LABS: Magnesium 2.4 mg/dL (1.9-2.7); Phosphorus 4.8 mg/dL (2.5-5.0)
[2022-07-08] MEDS ORDERED: Piperacillin/Tazobac ADVAN 3.375 GM in NS 0.9% 100 ml BAG 100 ML IV ONE (03:01)
[2022-07-08] MEDS ORDERED: Permethrin 1% LOTION 59 ML BTL TOPICAL ONE (03:03)
[2022-07-08] MEDS ORDERED: Fluconazole ORAL.SUSP 40 MG/ML 35 ML BTL PO ONE ×2 (03:10)
[2022-07-08] MEDS: Patiromer POWDER 8.4 GM PAK PO SCH ×2 (03:16→10:26)
[2022-07-08 03:44] LABS: Creatinine, Serum 1.99 mg/dL (0.51-0.95); eGFR CKD-EPI 27.2 (>60)
[2022-07-08] MEDS ORDERED: Zosyn per Pharmacy NOTE FOLLOW UP SCH (04:00)
[2022-07-08 04:16] LABS: High Sensitivity Troponin 1 Hr 40 pg/mL (<15)
[2022-07-08 04:54] LABS: Osmolality Serum 306 mOsm/kg (275-295)
[2022-07-08] MEDS ORDERED: Dextrose 50% Syringe 50 ml 25 GM/50 ML SYRINGE IV PUSH PRN (05:05)
[2022-07-08] MEDS ORDERED: Morphine 2 MG/ML SYRINGE ONE (06:02)
[2022-07-08] MEDS: Linezolid 600 MG IVPREMIX(*) 600 MG/300 ML BAG IVPB SCH ×2 (06:19→18:18)
[2022-07-08 06:44] LABS: Calcium 10.7 mg/dL (8.6-10.3); Creatinine, Serum 1.93 mg/dL (0.51-0.95); eGFR CKD-EPI 28.2 (>60)
[2022-07-08 06:52] LABS: Potassium 7.1 mmol/L (3.5-5.0)
[2022-07-08] MEDS ORDERED: CALCIUM GLUCONATE 1GM/50ML NS 1 GM/50 ML BAG IV ONE (06:54)
[2022-07-08] MEDS ORDERED: NS 0.9% 1000 ml BAG 100 ML IV PRN (07:29)
[2022-07-08] MEDS ORDERED: Albumin Human 25% 25 GM/100 ML BTL IV PRN (07:29)
[2022-07-08] MEDS ORDERED: NS 0.9% 1000 ml BAG 200 ML IV PRN (07:29)
[2022-07-08] MEDS: Morphine 2 MG/ML SYRINGE IV PRN (09:07)
[2022-07-08] MEDS ORDERED: NS 0.9% 1000 ml BAG 1,000 ML IV ONE (09:46)
[2022-07-08] MEDS: Mometasone/Formoter 200/5 MDI INH SCH ×2 (09:50→18:56)
[2022-07-08] MEDS ORDERED: Norepinephrine 16MCG/ML BAGD5W 4,000 MCG/250 ML BAG IV ONE (09:55)
[2022-07-08] MEDS: Norepinephrine 16MCG/ML BAGD5W 4,000 MCG/250 ML BAG IV SCH ×3 (10:00→20:12)
[2022-07-08] MEDS ORDERED: ZOSYN 3.375 GM Q8H per EXTENDED INFUSION IV SCH (10:30)
[2022-07-08 11:25] LABS: Hepatitis B Surface Antigen Nonreactive (Nonreactive)
[2022-07-08] MEDS: Nystatin TOP POWDER 15 GM BTL TOPICAL SCH ×3 (11:25→21:20)
[2022-07-08] MEDS: ZOSYN 3.375 GM Q12H per EXTENDED INFUSION IV SCH ×2 (11:25→22:56)
[2022-07-08 11:30] LABS: Hepatitis B Core IgM Nonreactive (Nonreactive)
[2022-07-08 11:38] LABS: Urine Potassium Concentration 79.4 mmol/L
[2022-07-08 11:42] LABS: Hematocrit 33 % (35-47); Hemoglobin 10.3 g/dL (12.0-16.0); Mean Corpuscular HGB Conc 31 g/dL (31-36); Mean Corpuscular Hemoglobin 25 pg (27-31); Mean Corpuscular Volume 80 fL (80-97); Mean Platelet Volume 7.9 fL (7.4-10.4); Platelet Count 464 10^3/uL (150-450); Red Blood Count 4.16 10^6 /uL (3.70-4.87); Red Cell Distribution Width 19 % (10-15); White Blood Count 23.7 10^3/uL (3.5-10.8)
[2022-07-08 11:43] LABS: Hepatitis B Surface Ab Not Immune (Immune)
[2022-07-08] MEDS ORDERED: Heparin 1,000 UNIT/ML 10 ml (10,000 UNITS) CATHLAB/DIALYSIS DIALYSIS ONE (11:43)
[2022-07-08 12:10] LABS: Calcium 9.2 mg/dL (8.6-10.3); Creatinine, Serum 1.26 mg/dL (0.51-0.95); Total Bilirubin 0.9 mg/dL (0.2-1.0); eGFR CKD-EPI 47.1 (>60)
[2022-07-08 12:17] LABS: Calcium 10.2 mg/dL (8.6-10.3); Creatinine, Serum 1.78 mg/dL (0.51-0.95); eGFR CKD-EPI 31.1 (>60)
[2022-07-08 12:18] LABS: Potassium 5.8 mmol/L (3.5-5.0)
[2022-07-08 12:23] LABS: TSH Ultra Thyroid Stim Horm 2.5 mcIU/mL (0.34-5.60)
[2022-07-08 12:25] LABS: Free T4 1.09 ng/dL (0.61-1.12)
[2022-07-08 12:38] LABS: Anisocytosis 1+
[2022-07-08 12:39] LABS: ABS Basophils 0.1 10^3/ul (0-0.2); ABS Lymphocytes 1.7 10^3/ul (1.0-4.8); ABS Monocytes 1.4 10^3/ul (0-0.8); ABS Neutrophils 20.5 10^3/ul (1.5-7.7); Eosinophil % 0.1 %; Lymphocyte % 7.2 %; Polychromasia 1+
[2022-07-08] MEDS ORDERED: HYDROmorphone 0.5 MG/0.5 ML SYRINGE IV SLOW PU PRN (12:49)
[2022-07-08 12:51] LABS: Urine Appearance Cloudy; Urine Bilirubin Negative (Negative); Urine Blood 1+ (Negative); Urine Color Yellow; Urine Glucose 1+(50 mg/dL) (Negative); Urine Ketones Negative (Negative); Urine Nitrite Negative (Negative); Urine Protein 1+(30 mg/dL) (Negative); Urine Urobilinogen Negative (Negative)
[2022-07-08 12:52] LABS: Urine Chloride Concentration 25 mmol/L; Urine Sodium Concentration < 18 mmol/L
[2022-07-08 13:00] LABS: Urine Bacteria Absent (Absent); Urine Red Blood Cell 3+(>10/hpf) (Absent); Urine Uric Acid Crystals Present (Absent); Urine White Blood Cell 1+(6-10/hpf) (Absent)
[2022-07-08] MEDS: NS 0.45% 1000 ml BAG 1,000 ML IV SCH ×2 (13:15→21:16)
[2022-07-08 14:06] LABS: Urine Osmo 570 mOsm/kg (150-1150)
[2022-07-08 17:49] LABS: Calcium 8.1 mg/dL (8.6-10.3); Creatinine, Serum 1.21 mg/dL (0.51-0.95); eGFR CKD-EPI 49.4 (>60)
[2022-07-08] MEDS: Insulin GLARGINE 100 un/ml 10 ml VIAL SUBCUT SCH (21:12)
[2022-07-08 23:38] LABS: Glucose Confirmatory 464 mg/dL (70-100)
[2022-07-09 00:20] LABS: Calcium 7.7 mg/dL (8.6-10.3); Creatinine, Serum 1.28 mg/dL (0.51-0.95); Potassium 3.9 mmol/L (3.5-5.0); eGFR CKD-EPI 46.2 (>60)
[2022-07-09] MEDS: Norepinephrine 16MCG/ML BAGD5W 4,000 MCG/250 ML BAG IV SCH ×3 (00:24→12:42)
[2022-07-09] MEDS: Albuterol HFA INHALER 8 gm MDI INH PRN ×2 (01:03→11:45)
[2022-07-09 04:21] LABS: Hematocrit 34 % (35-47); Hemoglobin 10.3 g/dL (12.0-16.0); Mean Corpuscular HGB Conc 31 g/dL (31-36); Mean Corpuscular Hemoglobin 25 pg (27-31); Mean Corpuscular Volume 81 fL (80-97); Mean Platelet Volume 7.6 fL (7.4-10.4); Platelet Count 390 10^3/uL (150-450); Red Blood Count 4.19 10^6 /uL (3.70-4.87); Red Cell Distribution Width 19 % (10-15)
[2022-07-09 04:31] LABS: ABS Basophils 0.1 10^3/ul (0-0.2); ABS Lymphocytes 2.2 10^3/ul (1.0-4.8); ABS Monocytes 1.1 10^3/ul (0-0.8); ABS Neutrophils 14.6 10^3/ul (1.5-7.7); Eosinophil % 0.1 %; Lymphocyte % 12.1 %
[2022-07-09 05:03] LABS: Creatinine, Serum 1.31 mg/dL (0.51-0.95); Magnesium 1.5 mg/dL (1.9-2.7); Potassium 3.7 mmol/L (3.5-5.0); eGFR CKD-EPI 44.9 (>60)
[2022-07-09] MEDS: Linezolid 600 MG IVPREMIX(*) 600 MG/300 ML BAG IVPB SCH ×2 (05:08→17:39)
[2022-07-09] MEDS: NS 0.45% 1000 ml BAG 1,000 ML IV SCH (05:43)
[2022-07-09] MEDS ORDERED: Magnesium Sulfate 2 gm BAG 2 GM/50 ML BAG IVPB ONE ×2 (05:49→23:43)
[2022-07-09] MEDS: Nystatin TOP POWDER 15 GM BTL TOPICAL SCH ×3 (08:46→20:25)
[2022-07-09] MEDS ORDERED: Docusate LIQ 100 MG/10 ML UDC PO PRN (09:33)
[2022-07-09] MEDS ORDERED: Senna TAB 8.6 mg TAB PO PRN (09:35)
[2022-07-09] MEDS: Polyethylene Glycol 3350 17 GM PACKET PO SCH ×2 (09:43→20:25)
[2022-07-09] MEDS: Patiromer POWDER 8.4 GM PAK PO SCH (10:31)
[2022-07-09] MEDS: ZOSYN 3.375 GM Q12H per EXTENDED INFUSION IV SCH ×2 (10:33→22:26)
[2022-07-09] MEDS: Mometasone/Formoter 200/5 MDI INH SCH ×2 (11:45→18:55)
[2022-07-09] MEDS ORDERED: Dextrose 50% Syringe 50 ml 25 GM/50 ML SYRINGE IV PUSH PRN (14:34)
[2022-07-09] MEDS: Insulin GLARGINE 100 un/ml 10 ml VIAL SUBCUT SCH (20:23)
[2022-07-09 21:56] LABS: Blood Urea Nitrogen 24 mg/dL (6-24); CO2 Carbon Dioxide 27 mmol/L (22-32); Calcium 7.9 mg/dL (8.6-10.3); Chloride 98 mmol/L (101-111); Creatinine, Serum 1.18 mg/dL (0.51-0.95); Glucose 212 mg/dL (70-100); Magnesium 1.8 mg/dL (1.9-2.7); Sodium 127 mmol/L (135-145); eGFR CKD-EPI 50.9 (>60)
[2022-07-09 22:00] LABS: Anion Gap 2 mmol/L (2-11)
[2022-07-09] MEDS ORDERED: Potassium Chlor 20 meq TAB.ER PO ONE (23:43)
[2022-07-10] MEDS ORDERED: NS 0.9% 500 ml BAG 500 ML IV ONE (00:47)
[2022-07-10 04:27] LABS: Hematocrit 30 % (35-47); Hemoglobin 9.3 g/dL (12.0-16.0); Mean Corpuscular HGB Conc 31 g/dL (31-36); Mean Corpuscular Hemoglobin 25 pg (27-31); Mean Corpuscular Volume 81 fL (80-97); Mean Platelet Volume 7.6 fL (7.4-10.4); Platelet Count 301 10^3/uL (150-450); Red Blood Count 3.68 10^6 /uL (3.70-4.87); Red Cell Distribution Width 19 % (10-15); White Blood Count 14.7 10^3/uL (3.5-10.8)
[2022-07-10 05:09] LABS: Calcium 7.9 mg/dL (8.6-10.3); Creatinine, Serum 1.14 mg/dL (0.51-0.95); Magnesium 2.2 mg/dL (1.9-2.7); Potassium 3.2 mmol/L (3.5-5.0); eGFR CKD-EPI 53.1 (>60)
[2022-07-10] MEDS: Linezolid 600 MG IVPREMIX(*) 600 MG/300 ML BAG IVPB SCH ×2 (05:21→22:55)
[2022-07-10 06:44] LABS: ABS Basophils 0.1 10^3/ul (0-0.2); ABS Eosinophils 0.1 10^3/ul (0-0.6); ABS Lymphocytes 2.1 10^3/ul (1.0-4.8); ABS Monocytes 0.7 10^3/ul (0-0.8); ABS Neutrophils 11.8 10^3/ul (1.5-7.7); Eosinophil % 0.7 %; Lymphocyte % 14.2 %
[2022-07-10 06:45] LABS: RBC Morphology Normal (Normal)
[2022-07-10] MEDS: Mometasone/Formoter 200/5 MDI INH SCH ×3 (08:18→19:38)
[2022-07-10] MEDS: Polyethylene Glycol 3350 17 GM PACKET PO SCH ×2 (08:26→23:00)
[2022-07-10] MEDS ORDERED: Potassium EFFERVES 25 meq TAB PO ONE (09:40)
[2022-07-10] MEDS: Nystatin TOP POWDER 15 GM BTL TOPICAL SCH ×3 (10:34→23:10)
[2022-07-10] MEDS: KCL 20 MEQ/100 ML IVPREMIX 20 MEQ/100 ML BAG IV SCH ×2 (11:39→14:35)
[2022-07-10] MEDS: ZOSYN 3.375 GM Q12H per EXTENDED INFUSION IV SCH ×2 (11:51→22:55)
[2022-07-10] MEDS: Morphine 2 MG/ML SYRINGE IV PRN (12:56)
[2022-07-10 15:59] LABS: C Reactive Protein 73.63 mg/L (<8.01)
[2022-07-10] MEDS ORDERED: Dextrose 50% Syringe 50 ml 25 GM/50 ML SYRINGE IV PUSH PRN (21:43)
[2022-07-10] MEDS: Insulin GLARGINE 100 un/ml 10 ml VIAL SUBCUT SCH (23:00)
[2022-07-11] MEDS: Linezolid 600 MG IVPREMIX(*) 600 MG/300 ML BAG IVPB SCH ×2 (06:25→18:25)
[2022-07-11 06:51] LABS: Hematocrit 31 % (35-47); Hemoglobin 9.5 g/dL (12.0-16.0); Mean Corpuscular HGB Conc 31 g/dL (31-36); Mean Corpuscular Hemoglobin 25 pg (27-31); Mean Corpuscular Volume 82 fL (80-97); Mean Platelet Volume 7.7 fL (7.4-10.4); Platelet Count 313 10^3/uL (150-450); Red Blood Count 3.74 10^6 /uL (3.70-4.87); Red Cell Distribution Width 20 % (10-15); White Blood Count 12.1 10^3/uL (3.5-10.8)
[2022-07-11] MEDS: Mometasone/Formoter 200/5 MDI INH SCH ×2 (07:02→21:12)
[2022-07-11 07:08] LABS: Calcium 8.1 mg/dL (8.6-10.3); Creatinine, Serum 0.99 mg/dL (0.51-0.95); Magnesium 1.9 mg/dL (1.9-2.7); Potassium 3.7 mmol/L (3.5-5.0); eGFR CKD-EPI 62.9 (>60)
[2022-07-11 07:13] LABS: ABS Basophils 0.1 10^3/ul (0-0.2); ABS Eosinophils 0.2 10^3/ul (0-0.6); ABS Monocytes 0.7 10^3/ul (0-0.8); ABS Neutrophils 9.2 10^3/ul (1.5-7.7); Eosinophil % 1.5 %; Lymphocyte % 16.7 %; Nucleated Red Blood Cells % 0.2
[2022-07-11] MEDS: Polyethylene Glycol 3350 17 GM PACKET PO SCH ×2 (08:19→21:10)
[2022-07-11] MEDS: Nystatin TOP POWDER 15 GM BTL TOPICAL SCH ×3 (09:00→21:11)
[2022-07-11] MEDS: ZOSYN 3.375 GM Q12H per EXTENDED INFUSION IV SCH ×2 (13:41→21:35)
[2022-07-11] MEDS: Insulin GLARGINE 100 un/ml 10 ml VIAL SUBCUT SCH (21:09)
[2022-07-12 05:50] LABS: Hematocrit 30 % (35-47); Hemoglobin 9.5 g/dL (12.0-16.0); Mean Corpuscular HGB Conc 31 g/dL (31-36); Mean Corpuscular Hemoglobin 26 pg (27-31); Mean Corpuscular Volume 82 fL (80-97); Mean Platelet Volume 7.2 fL (7.4-10.4); Platelet Count 316 10^3/uL (150-450); Red Blood Count 3.72 10^6 /uL (3.70-4.87); Red Cell Distribution Width 20 % (10-15); White Blood Count 10.7 10^3/uL (3.5-10.8)
[2022-07-12 06:23] LABS: Calcium 8.1 mg/dL (8.6-10.3); Creatinine, Serum 0.83 mg/dL (0.51-0.95); Potassium 3.8 mmol/L (3.5-5.0); eGFR CKD-EPI 77.7 (>60)
[2022-07-12] MEDS: Linezolid 600 MG IVPREMIX(*) 600 MG/300 ML BAG IVPB SCH ×2 (06:52→17:25)
[2022-07-12 07:13] LABS: ABS Basophils 0.1 10^3/ul (0-0.2); ABS Eosinophils 0.2 10^3/ul (0-0.6); ABS Monocytes 0.7 10^3/ul (0-0.8); ABS Neutrophils 7.7 10^3/ul (1.5-7.7); ABS Nucleated RBC 0.1 10^3/ul; Eosinophil % 1.9 %; Lymphocyte % 18.6 %; Nucleated Red Blood Cells % 0.5
[2022-07-12] MEDS: Mometasone/Formoter 200/5 MDI INH SCH ×4 (07:58→23:39)
[2022-07-12] MEDS: Nystatin TOP POWDER 15 GM BTL TOPICAL SCH ×3 (09:00→22:05)
[2022-07-12] MEDS: Polyethylene Glycol 3350 17 GM PACKET PO SCH ×2 (09:00→22:06)
[2022-07-12] MEDS: Albuterol HFA INHALER 8 gm MDI INH PRN ×2 (10:59→23:59)
[2022-07-12] MEDS: ZOSYN 3.375 GM Q12H per EXTENDED INFUSION IV SCH ×2 (12:23→23:44)
[2022-07-12] MEDS: Morphine 2 MG/ML SYRINGE IV PRN (12:32)
[2022-07-12] MEDS: Insulin GLARGINE 100 un/ml 10 ml VIAL SUBCUT SCH (22:06)
[2022-07-13] MEDS: Linezolid 600 MG IVPREMIX(*) 600 MG/300 ML BAG IVPB SCH ×2 (05:39→19:38)
[2022-07-13 07:11] LABS: ABS Basophils 0.1 10^3/ul (0-0.2); ABS Eosinophils 0.3 10^3/ul (0-0.6); ABS Lymphocytes 1.9 10^3/ul (1.0-4.8); ABS Monocytes 0.7 10^3/ul (0-0.8); ABS Neutrophils 7.2 10^3/ul (1.5-7.7); Eosinophil % 2.5 %; Hematocrit 30 % (35-47); Hemoglobin 9.5 g/dL (12.0-16.0); Mean Corpuscular HGB Conc 31 g/dL (31-36); Mean Corpuscular Hemoglobin 26 pg (27-31); Mean Corpuscular Volume 83 fL (80-97); Mean Platelet Volume 7.2 fL (7.4-10.4); Nucleated Red Blood Cells % 0.2; Platelet Count 312 10^3/uL (150-450); Red Blood Count 3.67 10^6 /uL (3.70-4.87); Red Cell Distribution Width 20 % (10-15); White Blood Count 10.1 10^3/uL (3.5-10.8)
[2022-07-13 07:45] LABS: Calcium 8.2 mg/dL (8.6-10.3); Creatinine, Serum 0.98 mg/dL (0.51-0.95); Potassium 3.9 mmol/L (3.5-5.0); eGFR CKD-EPI 63.7 (>60)
[2022-07-13] MEDS: Mometasone/Formoter 200/5 MDI INH SCH ×2 (07:53→19:27)
[2022-07-13] MEDS: Albuterol HFA INHALER 8 gm MDI INH PRN ×2 (07:54→19:27)
[2022-07-13] MEDS: Polyethylene Glycol 3350 17 GM PACKET PO SCH ×2 (08:24→22:11)
[2022-07-13] MEDS: ZOSYN 3.375 GM Q12H per EXTENDED INFUSION IV SCH ×2 (12:35→22:53)
[2022-07-13] MEDS: Morphine 2 MG/ML SYRINGE IV PRN (12:48)
[2022-07-13] MEDS: Nystatin TOP POWDER 15 GM BTL TOPICAL SCH ×3 (15:39→22:19)
[2022-07-13] MEDS: Insulin GLARGINE 100 un/ml 10 ml VIAL SUBCUT SCH (22:53)
[2022-07-14] MEDS: Morphine 2 MG/ML SYRINGE IV PRN (05:48)
[2022-07-14] MEDS: Linezolid 600 MG IVPREMIX(*) 600 MG/300 ML BAG IVPB SCH (05:48)
[2022-07-14] MEDS: Albuterol HFA INHALER 8 gm MDI INH PRN ×2 (07:31→19:23)
[2022-07-14] MEDS: Mometasone/Formoter 200/5 MDI INH SCH ×2 (07:32→19:23)
[2022-07-14] MEDS: Polyethylene Glycol 3350 17 GM PACKET PO SCH ×2 (08:09→22:54)
[2022-07-14] MEDS: Nystatin TOP POWDER 15 GM BTL TOPICAL SCH ×2 (09:30→16:10)
[2022-07-14] MEDS ORDERED: Morphine 2 MG/ML SYRINGE IV PRN (09:41)
[2022-07-14] MEDS: ZOSYN 3.375 GM Q12H per EXTENDED INFUSION IV SCH (12:22)
[2022-07-14 17:05] LABS: C Reactive Protein 15.64 mg/L (<8.01); Calcium 8.3 mg/dL (8.6-10.3); Creatinine, Serum 1.1 mg/dL (0.51-0.95); Potassium 4.2 mmol/L (3.5-5.0); eGFR CKD-EPI 55.4 (>60)
[2022-07-15] MEDS: Nystatin TOP POWDER 15 GM BTL TOPICAL SCH ×4 (01:15→20:54)
[2022-07-15] MEDS: Insulin GLARGINE 100 un/ml 10 ml VIAL SUBCUT SCH ×2 (01:15→20:53)
[2022-07-15] MEDS: Mometasone/Formoter 200/5 MDI INH SCH ×2 (08:15→19:38)
[2022-07-15] MEDS: Albuterol HFA INHALER 8 gm MDI INH PRN ×2 (08:15→19:38)
[2022-07-15 08:22] LABS: ABS Basophils 0.1 10^3/ul (0-0.2); ABS Eosinophils 0.2 10^3/ul (0-0.6); ABS Lymphocytes 2.5 10^3/ul (1.0-4.8); ABS Monocytes 0.7 10^3/ul (0-0.8); ABS Neutrophils 5.6 10^3/ul (1.5-7.7); Eosinophil % 2.4 %; Hematocrit 31 % (35-47); Hemoglobin 9.5 g/dL (12.0-16.0); Lymphocyte % 27.4 %; Mean Corpuscular HGB Conc 31 g/dL (31-36); Mean Corpuscular Hemoglobin 25 pg (27-31); Mean Corpuscular Volume 83 fL (80-97); Mean Platelet Volume 6.9 fL (7.4-10.4); Nucleated Red Blood Cells % 0.1; Platelet Count 335 10^3/uL (150-450); Red Blood Count 3.75 10^6 /uL (3.70-4.87); Red Cell Distribution Width 20 % (10-15); White Blood Count 9.1 10^3/uL (3.5-10.8)
[2022-07-15 08:50] LABS: Calcium 8.4 mg/dL (8.6-10.3); Creatinine, Serum 1.16 mg/dL (0.51-0.95); Magnesium 1.8 mg/dL (1.9-2.7); Potassium 4.6 mmol/L (3.5-5.0)
[2022-07-15] MEDS: Polyethylene Glycol 3350 17 GM PACKET PO SCH ×2 (08:51→20:56)
[2022-07-16] MEDS: Albuterol HFA INHALER 8 gm MDI INH PRN ×2 (08:07→19:33)
[2022-07-16] MEDS: Mometasone/Formoter 200/5 MDI INH SCH ×2 (08:08→19:33)
[2022-07-16 08:59] LABS: Potassium 4.6 mmol/L (3.5-5.0)
[2022-07-16 09:00] LABS: Calcium 8.5 mg/dL (8.6-10.3); Creatinine, Serum 1.19 mg/dL (0.51-0.95); eGFR CKD-EPI 50.4 (>60)
[2022-07-16] MEDS: Polyethylene Glycol 3350 17 GM PACKET PO SCH ×2 (09:12→20:14)
[2022-07-16] MEDS: Nystatin TOP POWDER 15 GM BTL TOPICAL SCH ×3 (09:14→20:14)
[2022-07-16] MEDS: Insulin GLARGINE 100 un/ml 10 ml VIAL SUBCUT SCH (20:12)
[2022-07-17 06:14] LABS: Calcium 8.3 mg/dL (8.6-10.3); Creatinine, Serum 1.04 mg/dL (0.51-0.95); Potassium 4.9 mmol/L (3.5-5.0); eGFR CKD-EPI 59.3 (>60)
[2022-07-17] MEDS: Mometasone/Formoter 200/5 MDI INH SCH (07:07)
[2022-07-17] MEDS: Albuterol HFA INHALER 8 gm MDI INH PRN (07:10)
[2022-07-17] MEDS: Nystatin TOP POWDER 15 GM BTL TOPICAL SCH (07:39)
[2022-07-17] MEDS: Polyethylene Glycol 3350 17 GM PACKET PO SCH (07:41)
[2022-07-17 10:11] LABS: Rapid COVID-19 Molecular Undetected (Undetected)
[2022-07-17 11:52] VITALS: BP 97/67
== END 2022-07-17 12:17 | DRG 871 ==
LOC: ED 21:57 → ICU 07-08 05:01 → SUATTDRO 07-08 05:01 → ICU 07-08 05:29 → MEDTELE 07-10 16:12 → SSU 07-13 20:33
PROVIDERS: ADMIT Internal Medicine Critical Care Medicine; ATTEND Internal Medicine

== ENCOUNTER 2022-09-18 10:16 | Inpatient (IN) ==
[2022-09-18] MEDS ORDERED: Albuterol/Ipratropium NEB.SOL (2.5/0.5 MG) 3 ML NEB.SOLN INH ONE (11:23)
[2022-09-18 11:47] LABS: Hematocrit 37.2 % (35-45); Hemoglobin 11.1 g/dL (11.5-14.3); Mean Corpuscular Hemoglobin 22.3 pg (27-33); Mean Corpuscular Hgb Conc 29.8 g/dL (31-36); Mean Corpuscular Volume 74.7 fL (80-97); Mean Platelet Volume 7.7 fL (7.5-11.2); Platelet Count 550 10^3/uL (150-450); Red Blood Count 4.98 10^6/uL (3.63-4.92); Red Cell Distribution Width 22.1 % (12-17); White Blood Count 49.1 10^3/uL (3.8-11.8)
[2022-09-18] MEDS ORDERED: Piperacillin/Tazobac ADVAN 3.375 GM in NS 0.9% 100 ml BAG 100 ML IV ONE (12:01)
[2022-09-18 12:58] LABS: C Reactive Protein 115.6 mg/L (<8.01); Calcium 9.9 mg/dL (8.6-10.3); Creatinine, Serum 2.59 mg/dL (0.51-0.95); Globulin 3.9 g/dL (2-4); Total Bilirubin 0.7 mg/dL (0.2-1.0); Total Protein 7.9 g/dL (6.4-8.9); eGFR CKD-EPI 19.8 (>60)
[2022-09-18 13:02] LABS: Anisocytosis 2+; Hypochromasia 1+
[2022-09-18 13:03] LABS: Microcytosis 1+
[2022-09-18 13:05] LABS: ABS Basophils 0.2 10^3/uL (0.0-0.1); ABS Lymphocytes 1.1 10^3/uL (1.0-4.8); ABS Monocytes 0.7 10^3/uL (0.0-0.9); ABS Neutrophils 47.1 10^3/uL (1.5-7.6); Lymphocyte % 2.3 %
[2022-09-18 13:22] LABS: High Sensitivity Troponin 1 Hr 22 pg/mL (<15)
[2022-09-18] MEDS ORDERED: Vancomycin 1,500 MG in NS 0.9% 250 ml 250 ML IVPB ONE (13:30)
[2022-09-18 13:39] LABS: Potassium 7.8 mmol/L (3.5-5.0)
[2022-09-18] MEDS ORDERED: Dexamethasone IV 4 MG/ML VIAL 1 ml VIAL IV SLOW PU ONE (13:43)
[2022-09-18] MEDS ORDERED: Calcium Gluconate 2 GM in NS 0.9% 100 ml BAG 100 ML IVPB ONE (13:43)
[2022-09-18] MEDS ORDERED: Albuterol (2.5 MG) 0.5 % CONC 0.5 ML NEB.SOLN INH ONE (14:00)
[2022-09-18] MEDS: NS 0.9% 1000 ml BAG 1,000 ML IV SCH ×3 (14:01→20:43)
[2022-09-18] MEDS ORDERED: Sodium Polystyrene ORAL.SUSP 15 GM/60 ML BTL PO ONE ×3 (14:30→19:09)
[2022-09-18] MEDS ORDERED: Dextrose 50% Syringe 50 ml 25 GM/50 ML SYRINGE IV PUSH ONE ×2 (15:05→15:06)
[2022-09-18] MEDS ORDERED: NS 0.9% 1000 ml BAG 1,000 ML IV SCH (15:30)
[2022-09-18] MEDS ORDERED: Sulfur Hexaflouride MICROSPHR 25 MG VIAL ONE (15:57)
[2022-09-18] MEDS ORDERED: NORMOSOL-R pH 7.4 1000 mL BAG 1,000 ML IV SCH (16:00)
[2022-09-18] MEDS ORDERED: Vancomycin per Pharmacy 1 EA NOTE FOLLOW UP SCH (16:00)
[2022-09-18] MEDS ORDERED: Cefepime 1 GM in Dextrose 1 GM/50 ML BAG IV SCH (16:00)
[2022-09-18] MEDS ORDERED: Vancomycin 2,000 MG in NS 0.9% 500 ml BAG 500 ML IVPB ONE (17:00)
[2022-09-18] MEDS ORDERED: oxyCODONE/Acetamin 5/325 mg TAB PO PRN (17:11)
[2022-09-18] MEDS ORDERED: Dextrose 50% Syringe 50 ml 25 GM/50 ML SYRINGE IV PUSH PRN (17:12)
[2022-09-18 17:18] LABS: TSH Ultra Thyroid Stim Horm 7.51 mcIU/mL (0.34-5.60)
[2022-09-18 17:23] LABS: Osmolality Serum 301 mOsm/kg (275-295)
[2022-09-18] MEDS: Mometasone/Formoter 200/5 MDI INH SCH (19:16)
[2022-09-18 19:58] LABS: Albumin 3.1 g/dL (3.2-5.2); Albumin/Globulin Ratio 0.9 (1-3); Calcium 9.4 mg/dL (8.6-10.3); Creatinine, Serum 2.38 mg/dL (0.51-0.95); Globulin 3.5 g/dL (2-4); Total Bilirubin 0.5 mg/dL (0.2-1.0); Total Protein 6.6 g/dL (6.4-8.9); eGFR CKD-EPI 21.9 (>60)
[2022-09-18 20:00] LABS: Potassium 6.6 mmol/L (3.5-5.0)
[2022-09-18 20:28] LABS: ABS Basophils 0.1 10^3/uL (0.0-0.1); ABS Lymphocytes 1.2 10^3/uL (1.0-4.8); ABS Monocytes 0.4 10^3/uL (0.0-0.9); ABS Neutrophils 37.3 10^3/uL (1.5-7.6); ABS Nucleated RBC 0.01 10^3/ul; Hemoglobin 9.4 g/dL (11.5-14.3); Lymphocyte % 3.2 %; Mean Corpuscular Hemoglobin 22.1 pg (27-33); Mean Corpuscular Hgb Conc 29.4 g/dL (31-36); Mean Corpuscular Volume 75.1 fL (80-97); Mean Platelet Volume 7.7 fL (7.5-11.2); Platelet Count 458 10^3/uL (150-450); Red Blood Count 4.26 10^6/uL (3.63-4.92); Red Cell Distribution Width 22.5 % (12-17)
[2022-09-18] MEDS ORDERED: Insulin GLARGINE 100 un/ml 10 ml VIAL SUBCUT SCH (21:00)
[2022-09-18] MEDS: Nystatin TOP POWDER 15 GM BTL TOPICAL SCH (21:20)
[2022-09-18] MEDS: Cefepime 1 GM in Dextrose 1 GM/50 ML BAG IV SCH (21:25)
[2022-09-18] MEDS ORDERED: Vancomycin 1,000 MG in NS 0.9% 250 ml 250 ML IVPB ONE (22:00)
[2022-09-18 22:24] LABS: Urine Osmo 541 mOsm/kg (150-1150)
[2022-09-18 22:25] LABS: Urine Appearance Cloudy; Urine Bilirubin Negative (Negative); Urine Blood Negative (Negative); Urine Color Yellow; Urine Glucose 3+(>=500 mg/dL) (Negative); Urine Ketones Negative (Negative); Urine Nitrite Negative (Negative); Urine Protein 1+(30 mg/dL) (Negative); Urine Specific Gravity 1.017 (1.002-1.030); Urine Urobilinogen Negative (Negative)
[2022-09-18 22:30] LABS: Urine Bacteria 1+ (Absent); Urine Red Blood Cell Absent (Absent); Urine Squamous Epithelial Cell Present (Absent); Urine Uric Acid Crystals Present (Absent); Urine White Blood Cell 3+(>20/hpf) (Absent)
[2022-09-18] MEDS ORDERED: NS 0.9% 1000 ml BAG 1,000 ML IV ONE (22:42)
[2022-09-18 23:07] LABS: Calcium 8.7 mg/dL (8.6-10.3); Creatinine, Serum 2.17 mg/dL (0.51-0.95); Magnesium 1.9 mg/dL (1.9-2.7); Potassium 5.8 mmol/L (3.5-5.0); eGFR CKD-EPI 24.5 (>60)
[2022-09-19] MEDS ORDERED: NS 0.9% IV ONE (02:00)
[2022-09-19 04:55] LABS: ABS Basophils 0.1 10^3/uL (0.0-0.1); ABS Lymphocytes 1.2 10^3/uL (1.0-4.8); ABS Monocytes 0.6 10^3/uL (0.0-0.9); ABS Neutrophils 22.5 10^3/uL (1.5-7.6); ABS Nucleated RBC 0.01 10^3/ul; Hematocrit 26.7 % (35-45); Hemoglobin 8.2 g/dL (11.5-14.3); Lymphocyte % 4.8 %; Mean Corpuscular Hgb Conc 30.8 g/dL (31-36); Mean Corpuscular Volume 74.7 fL (80-97); Mean Platelet Volume 7.7 fL (7.5-11.2); Platelet Count 380 10^3/uL (150-450); Red Blood Count 3.57 10^6/uL (3.63-4.92); Red Cell Distribution Width 22.1 % (12-17); White Blood Count 24.3 10^3/uL (3.8-11.8)
[2022-09-19 05:11] LABS: Calcium 8.1 mg/dL (8.6-10.3); Creatinine, Serum 1.76 mg/dL (0.51-0.95); Magnesium 1.8 mg/dL (1.9-2.7); Potassium 4.9 mmol/L (3.5-5.0); Vancomycin Random 15.1 mcg/mL; eGFR CKD-EPI 31.5 (>60)
[2022-09-19] MEDS ORDERED: Vancomycin Random Level NOTE FOLLOW UP ONE (06:00)
[2022-09-19] MEDS: NS 0.9% 1000 ml BAG 1,000 ML IV SCH ×2 (06:14→18:14)
[2022-09-19] MEDS ORDERED: Magnesium Sulfate 2 gm BAG 2 GM/50 ML BAG IVPB ONE (07:38)
[2022-09-19] MEDS: Mometasone/Formoter 200/5 MDI INH SCH ×2 (07:52→19:04)
[2022-09-19] MEDS: Nystatin TOP POWDER 15 GM BTL TOPICAL SCH ×3 (09:54→21:45)
[2022-09-19] MEDS: Cefepime 1 GM in Dextrose 1 GM/50 ML BAG IV SCH ×2 (09:54→21:36)
[2022-09-19] MEDS: Vancomycin 1,500 MG in NS 0.9% 250 ml 250 ML IVPB SCH (11:18)
[2022-09-19] MEDS ORDERED: Dextrose 50% Syringe 50 ml 25 GM/50 ML SYRINGE IV PUSH PRN (17:08)
[2022-09-19] MEDS: Insulin GLARGINE 100 un/ml 10 ml VIAL SUBCUT SCH (21:37)
[2022-09-20 02:30] LABS: Hematocrit 25.9 % (35-45); Mean Corpuscular Hemoglobin 22.7 pg (27-33); Mean Corpuscular Hgb Conc 30.9 g/dL (31-36); Mean Corpuscular Volume 73.5 fL (80-97); Mean Platelet Volume 7.6 fL (7.5-11.2); Platelet Count 416 10^3/uL (150-450); Red Blood Count 3.52 10^6/uL (3.63-4.92); Red Cell Distribution Width 22.7 % (12-17); White Blood Count 20.6 10^3/uL (3.8-11.8)
[2022-09-20 02:54] LABS: ABS Basophils 0.1 10^3/uL (0.0-0.1); ABS Lymphocytes 1.5 10^3/uL (1.0-4.8); ABS Monocytes 0.9 10^3/uL (0.0-0.9); ABS Neutrophils 18.2 10^3/uL (1.5-7.6); ABS Nucleated RBC 0.01 10^3/ul; Eosinophil % 0.1 %; Lymphocyte % 7.1 %
[2022-09-20] MEDS: NS 0.9% 1000 ml BAG 1,000 ML IV SCH ×3 (03:10→16:05)
[2022-09-20 03:15] LABS: Anion Gap 7 mmol/L (2-16); Blood Urea Nitrogen 35 mg/dL (6-24); CO2 Carbon Dioxide 23 mmol/L (22-32); Calcium 8.2 mg/dL (8.6-10.3); Chloride 105 mmol/L (101-111); Creatinine, Serum 1.32 mg/dL (0.51-0.95); Glucose 168 mg/dL (70-100); Magnesium 2.2 mg/dL (1.9-2.7); Potassium 3.6 mmol/L (3.5-5.0); Sodium 135 mmol/L (135-145); eGFR CKD-EPI 44.5 (>60)
[2022-09-20] MEDS: Albuterol HFA INHALER 8 gm MDI INH PRN ×3 (05:44→17:13)
[2022-09-20] MEDS: Mometasone/Formoter 200/5 MDI INH SCH ×2 (08:17→19:18)
[2022-09-20] MEDS: Cefepime 1 GM in Dextrose 1 GM/50 ML BAG IV SCH (09:12)
[2022-09-20] MEDS: Vancomycin 1,500 MG in NS 0.9% 250 ml 250 ML IVPB SCH (11:06)
[2022-09-20] MEDS: Nystatin TOP POWDER 15 GM BTL TOPICAL SCH ×3 (11:30→20:30)
[2022-09-20 14:12] LABS: % Iron Saturation 5 % (15-55); .Transferrin 279 mg/dL (203-362); Iron < 20 ug/dL (50-212); Total Iron Binding Capacity 391 mcg/dL (250-450); Unsaturated Iron Binding 371 ug/dL
[2022-09-20 14:33] LABS: Ferritin 41.2 ng/mL (11-307)
[2022-09-20] MEDS: cefTRIAXone 1 gm/50 mL D5W 1 GM/50 ML BAG IV SCH (16:07)
[2022-09-20] MEDS: Insulin GLARGINE 100 un/ml 10 ml VIAL SUBCUT SCH (20:28)
[2022-09-21] MEDS: Albuterol HFA INHALER 8 gm MDI INH PRN ×3 (01:34→22:58)
[2022-09-21 07:15] LABS: ABS Basophils 0.1 10^3/uL (0.0-0.1); ABS Eosinophils 0.1 10^3/uL (0.0-0.5); ABS Monocytes 0.8 10^3/uL (0.0-0.9); ABS Nucleated RBC 0.02 10^3/ul; Eosinophil % 0.7 %; Hemoglobin 8.5 g/dL (11.5-14.3); Lymphocyte % 15.2 %; Mean Corpuscular Hemoglobin 22.9 pg (27-33); Mean Corpuscular Hgb Conc 30.4 g/dL (31-36); Mean Corpuscular Volume 75.2 fL (80-97); Mean Platelet Volume 7.4 fL (7.5-11.2); Nucleated Red Blood Cells % 0.1 /100 WBC (0.0-0.4); Platelet Count 389 10^3/uL (150-450); Red Blood Count 3.73 10^6/uL (3.63-4.92); Red Cell Distribution Width 22.7 % (12-17); White Blood Count 12.9 10^3/uL (3.8-11.8)
[2022-09-21 07:35] LABS: Creatinine, Serum 1.15 mg/dL (0.51-0.95); Magnesium 1.9 mg/dL (1.9-2.7); Potassium 3.5 mmol/L (3.5-5.0); eGFR CKD-EPI 52.5 (>60)
[2022-09-21] MEDS: Mometasone/Formoter 200/5 MDI INH SCH ×2 (08:43→19:19)
[2022-09-21] MEDS: Nystatin TOP POWDER 15 GM BTL TOPICAL SCH ×3 (09:25→23:11)
[2022-09-21] MEDS: Fluticasone NASAL SPRAY 50MCG 16 gm SPRAY BTL BOTH NARES SCH (13:35)
[2022-09-21] MEDS: cefTRIAXone 1 gm/50 mL D5W 1 GM/50 ML BAG IV SCH (14:53)
[2022-09-21] MEDS: Insulin GLARGINE 100 un/ml 10 ml VIAL SUBCUT SCH (23:04)
[2022-09-22] MEDS: Albuterol HFA INHALER 8 gm MDI INH PRN ×3 (03:52→16:23)
[2022-09-22] MEDS: Mometasone/Formoter 200/5 MDI INH SCH ×2 (07:26→19:24)
[2022-09-22] MEDS: Fluticasone NASAL SPRAY 50MCG 16 gm SPRAY BTL BOTH NARES SCH (09:14)
[2022-09-22] MEDS: Nystatin TOP POWDER 15 GM BTL TOPICAL SCH ×3 (09:15→22:06)
[2022-09-22] MEDS ORDERED: Vancomycin Trough Check NOTE FOLLOW UP ONE (09:30)
[2022-09-22 09:55] LABS: Hematocrit 29.1 % (35-45); Hemoglobin 8.9 g/dL (11.5-14.3); Mean Corpuscular Hemoglobin 22.4 pg (27-33); Mean Corpuscular Hgb Conc 30.6 g/dL (31-36); Mean Corpuscular Volume 73.1 fL (80-97); Mean Platelet Volume 7.1 fL (7.5-11.2); Platelet Count 453 10^3/uL (150-450); Red Blood Count 3.98 10^6/uL (3.63-4.92); Red Cell Distribution Width 23.1 % (12-17); White Blood Count 11.5 10^3/uL (3.8-11.8)
[2022-09-22 10:16] LABS: ABS Basophils 0.1 10^3/uL (0.0-0.1); ABS Eosinophils 0.1 10^3/uL (0.0-0.5); ABS Lymphocytes 1.7 10^3/uL (1.0-4.8); ABS Monocytes 0.5 10^3/uL (0.0-0.9); ABS Nucleated RBC 0.03 10^3/ul; Eosinophil % 0.7 %; Lymphocyte % 15.2 %; Nucleated Red Blood Cells % 0.3 /100 WBC (0.0-0.4)
[2022-09-22 10:31] LABS: Calcium 8.4 mg/dL (8.6-10.3); Creatinine, Serum 1.01 mg/dL (0.51-0.95); Potassium 3.9 mmol/L (3.5-5.0); eGFR CKD-EPI 61.4 (>60)
[2022-09-22] MEDS: cefTRIAXone 1 gm/50 mL D5W 1 GM/50 ML BAG IV SCH (14:55)
[2022-09-22 15:20] LABS: C Reactive Protein 27.91 mg/L (<8.01)
[2022-09-22] MEDS: Insulin GLARGINE 100 un/ml 10 ml VIAL SUBCUT SCH (22:03)
[2022-09-23] MEDS: Albuterol HFA INHALER 8 gm MDI INH PRN ×3 (00:41→15:22)
[2022-09-23 07:16] LABS: Hematocrit 26.5 % (35-45); Hemoglobin 8.3 g/dL (11.5-14.3); Mean Corpuscular Hgb Conc 31.1 g/dL (31-36); Mean Platelet Volume 7.5 fL (7.5-11.2); Platelet Count 425 10^3/uL (150-450); Red Blood Count 3.58 10^6/uL (3.63-4.92); Red Cell Distribution Width 23.1 % (12-17); White Blood Count 11.3 10^3/uL (3.8-11.8)
[2022-09-23 07:21] LABS: Calcium 8.2 mg/dL (8.6-10.3); Creatinine, Serum 0.88 mg/dL (0.51-0.95); Magnesium 1.7 mg/dL (1.9-2.7); Potassium 4.1 mmol/L (3.5-5.0); eGFR CKD-EPI 72.4 (>60)
[2022-09-23 07:44] LABS: ABS Basophils 0.1 10^3/uL (0.0-0.1); ABS Eosinophils 0.2 10^3/uL (0.0-0.5); ABS Lymphocytes 1.7 10^3/uL (1.0-4.8); ABS Monocytes 0.8 10^3/uL (0.0-0.9); ABS Neutrophils 8.5 10^3/uL (1.5-7.6); ABS Nucleated RBC 0.03 10^3/ul; Anisocytosis 2+; Eosinophil % 1.3 %; Lymphocyte % 15.4 %; Microcytosis 2+; Nucleated Red Blood Cells % 0.2 /100 WBC (0.0-0.4); Polychromasia 1+
[2022-09-23] MEDS: Mometasone/Formoter 200/5 MDI INH SCH ×2 (07:53→19:58)
[2022-09-23] MEDS: Fluticasone NASAL SPRAY 50MCG 16 gm SPRAY BTL BOTH NARES SCH (08:13)
[2022-09-23] MEDS: Nystatin TOP POWDER 15 GM BTL TOPICAL SCH ×3 (08:16→22:00)
[2022-09-23] MEDS: cefTRIAXone 1 gm/50 mL D5W 1 GM/50 ML BAG IV SCH (15:21)
[2022-09-23] MEDS ORDERED: Magnesium Sulfate 2 gm BAG 2 GM/50 ML BAG IVPB ONE (19:10)
[2022-09-23] MEDS: Insulin GLARGINE 100 un/ml 10 ml VIAL SUBCUT SCH (21:57)
[2022-09-24 06:37] VITALS: BP 118/64
[2022-09-24] MEDS: Fluticasone NASAL SPRAY 50MCG 16 gm SPRAY BTL BOTH NARES SCH (07:51)
[2022-09-24] MEDS: Nystatin TOP POWDER 15 GM BTL TOPICAL SCH ×2 (07:52→13:19)
[2022-09-24] MEDS: Mometasone/Formoter 200/5 MDI INH SCH (08:03)
[2022-09-24] MEDS: Albuterol HFA INHALER 8 gm MDI INH PRN (08:05)
[2022-09-24] MEDS: cefTRIAXone 1 gm/50 mL D5W 1 GM/50 ML BAG IV SCH (13:07)
== END 2022-09-24 13:53 | DRG 872 ==
LOC: ED 10:16 → EDHOLD 15:50 → ICU 16:54 → MEDTELE 09-20 15:08
PROVIDERS: ADMIT Internal Medicine Critical Care Medicine; ATTEND Internal Medicine

== ENCOUNTER 2023-11-07 06:51 | Inpatient (IN) ==
[2023-11-07] MEDS: Lactated Ringers 1000 ml BAG 1,000 ML IV ONE ×2 (07:51)
[2023-11-07] MEDS: cefTRIAXone 2 gm/50 mL D5W 2 GM/50 ML BAG IV ONE (07:51)
[2023-11-07 08:32] LABS: ABS Basophils 0.1 10^3/uL (0.0-0.1); ABS Eosinophils 0.1 10^3/uL (0.0-0.5); ABS Lymphocytes 2.1 10^3/uL (1.0-4.8); ABS Monocytes 1.1 10^3/uL (0.0-0.9); ABS Neutrophils 13.8 10^3/uL (1.5-7.6); ABS Nucleated RBC 0.01 10^3/ul; Eosinophil % 0.9 %; Hematocrit 40.5 % (35-45); Lymphocyte % 12.3 %; Mean Corpuscular Hemoglobin 28.5 pg (27-33); Mean Platelet Volume 8.3 fL (7.5-11.2); Platelet Count 346 10^3/uL (150-450); Red Blood Count 4.56 10^6/uL (3.63-4.92); Red Cell Distribution Width 17.8 % (12-17); White Blood Count 17.3 10^3/uL (3.8-11.8)
[2023-11-07 08:42] LABS: Activated Partial Thrombo Time 30.7 seconds (26.0-38.0); INR 1.24 (0.83-1.13)
[2023-11-07] MEDS: Vancomycin 1,500 MG in NS 0.9% 250 ml 250 ML IVPB SCH (08:47)
[2023-11-07 08:53] LABS: Albumin 3.4 g/dL (3.2-5.2); C Reactive Protein 118.81 mg/L (<8.01); Calcium 8.9 mg/dL (8.6-10.3); Creatinine, Serum 1.08 mg/dL (0.51-0.95); Globulin 3.4 g/dL (2-4); Potassium 3.8 mmol/L (3.5-5.0); Total Protein 6.8 g/dL (6.4-8.9); eGFR CKD-EPI 56.3 (>60)
[2023-11-07] MEDS ORDERED: Ondansetron 4 mg VIAL 2 MG/ML 2 ml VIAL IV PRN (10:05)
[2023-11-07] MEDS ORDERED: Dextrose 50% Syringe 50 ml 25 GM/50 ML SYRINGE IV PUSH PRN (10:47)
[2023-11-07] MEDS ORDERED: Vancomycin per Pharmacy 1 EA NOTE FOLLOW UP SCH (11:00)
[2023-11-07] MEDS: Nystatin TOP POWDER 15 GM BTL TOPICAL SCH (15:13)
[2023-11-07] MEDS: Albuterol HFA INHALER 8 gm MDI INH PRN (18:06)
[2023-11-07] MEDS: Vancomycin 750 MG in NS 0.9% 250 ML IVPB SCH (18:11)
[2023-11-07] MEDS: PTO: Budesonide/Formote 160/4.5(NF) MDI INH SCH (19:18)
[2023-11-08 06:29] LABS: ABS Basophils 0.1 10^3/uL (0.0-0.1); ABS Eosinophils 0.2 10^3/uL (0.0-0.5); ABS Lymphocytes 2.2 10^3/uL (1.0-4.8); ABS Monocytes 0.8 10^3/uL (0.0-0.9); ABS Neutrophils 7.3 10^3/uL (1.5-7.6); ABS Nucleated RBC 0.01 10^3/ul; Eosinophil % 1.8 %; Hematocrit 40.7 % (35-45); Hemoglobin 12.9 g/dL (11.5-14.3); Lymphocyte % 21.1 %; Mean Corpuscular Hemoglobin 28.6 pg (27-33); Mean Corpuscular Hgb Conc 31.8 g/dL (31-36); Mean Corpuscular Volume 90.1 fL (80-97); Mean Platelet Volume 8.3 fL (7.5-11.2); Platelet Count 299 10^3/uL (150-450); Red Blood Count 4.51 10^6/uL (3.63-4.92); Red Cell Distribution Width 17.6 % (12-17); White Blood Count 10.6 10^3/uL (3.8-11.8)
[2023-11-08 06:47] LABS: Calcium 9.2 mg/dL (8.6-10.3); Creatinine, Serum 1.16 mg/dL (0.51-0.95); Magnesium 2.2 mg/dL (1.9-2.7); Potassium 3.9 mmol/L (3.5-5.0); eGFR CKD-EPI 51.7 (>60)
[2023-11-08] MEDS: Empagliflozin 25 MG TAB PO SCH (08:13)
[2023-11-08] MEDS: cefTRIAXone 2 gm/50 mL D5W 2 GM/50 ML BAG IV SCH (08:30)
[2023-11-08] MEDS ORDERED: Vancomycin Trough Check NOTE FOLLOW UP ONE (17:30)
[2023-11-09 06:37] LABS: Hematocrit 42.7 % (35-45); Hemoglobin 13.8 g/dL (11.5-14.3); Mean Corpuscular Hgb Conc 32.2 g/dL (31-36); Mean Corpuscular Volume 89.8 fL (80-97); Mean Platelet Volume 8.1 fL (7.5-11.2); Platelet Count 322 10^3/uL (150-450); Red Blood Count 4.75 10^6/uL (3.63-4.92); Red Cell Distribution Width 17.8 % (12-17); White Blood Count 9.6 10^3/uL (3.8-11.8)
[2023-11-09 06:57] LABS: Calcium 8.9 mg/dL (8.6-10.3); Creatinine, Serum 1.4 mg/dL (0.51-0.95); Potassium 4.6 mmol/L (3.5-5.0); eGFR CKD-EPI 41.2 (>60)
[2023-11-09] MEDS: Morphine 2 MG/ML SYRINGE IV ONE (08:23)
[2023-11-09] MEDS: Lidocaine 1% w EPI 1:100,000 MDV 50 ML VIAL INJ ONE (09:08)
[2023-11-09] MEDS: Lactated Ringers 1000 ml BAG 1,000 ML IV ONE (09:10)
[2023-11-09] MEDS: Insulin GLARGINE 100 un/ml 10 ml VIAL SUBCUT SCH (19:33)
[2023-11-09] MEDS: Lactated Ringers 1000 ml BAG 1,000 ML IV SCH (19:39)
[2023-11-09] MEDS: Enoxaparin 40 MG/0.4 ML SYR SUBCUT SCH (21:25)
[2023-11-10 07:35] LABS: ABS Basophils 0.1 10^3/uL (0.0-0.1); ABS Eosinophils 0.2 10^3/uL (0.0-0.5); ABS Lymphocytes 2.4 10^3/uL (1.0-4.8); ABS Monocytes 0.8 10^3/uL (0.0-0.9); Eosinophil % 1.9 %; Hematocrit 41.7 % (35-45); Hemoglobin 13.6 g/dL (11.5-14.3); Lymphocyte % 19.3 %; Mean Corpuscular Hemoglobin 29.1 pg (27-33); Mean Corpuscular Hgb Conc 32.6 g/dL (31-36); Mean Corpuscular Volume 89.3 fL (80-97); Mean Platelet Volume 8.3 fL (7.5-11.2); Platelet Count 358 10^3/uL (150-450); Red Blood Count 4.68 10^6/uL (3.63-4.92); Red Cell Distribution Width 17.2 % (12-17); White Blood Count 12.4 10^3/uL (3.8-11.8)
[2023-11-10] MEDS: Insulin GLARGINE 100 un/ml 10 ml VIAL SUBCUT SCH (08:19)
[2023-11-10 09:17] LABS: Calcium 9.5 mg/dL (8.6-10.3); Creatinine, Serum 1.31 mg/dL (0.51-0.95); Magnesium 2.2 mg/dL (1.9-2.7); Potassium 4.8 mmol/L (3.5-5.0); eGFR CKD-EPI 44.7 (>60)
[2023-11-10] MEDS: Morphine 2 MG/ML SYRINGE IV ONE (17:29)
[2023-11-10 17:32] VITALS: BP 101/79
== END 2023-11-10 19:00 | disposition home or self-care (01) | DRG 584 ==
LOC: ED 06:51 → SUATTDRO 10:05 → EDHOLD 10:05 → MED 15:26
PROVIDERS: ADMIT Student in an Organized Health Care Education/Training Program; ATTEND Student in an Organized Health Care Education/Training Program